=== PATIENT | female | born 1960 | race Caucasian/White ===

== ENCOUNTER 2021-07-05 09:03 | Outpatient (CLI) | payer MEDICAID, SELFPAY ==
--- NOTE | 2021-07-05 09:14 | MM_ITS ---
WS: [id number] BILATERAL DIGITAL SCREENING MAMMOGRAPHY WITH CAD CLINICAL INFORMATION: SCREENING HISTORY: Screening mammogram. No current complaints. COMPARISON: TECHNIQUE: Bilateral CC and MLO views. FINDINGS: Scattered fibroglandular densities bilaterally. Punctate and lucent centered calcifications. No suspi cious focal mass, asymmetry, calcifications, or architectural distortion. No evidence of malignancy. MM/[place] [id number] IMPRESSION: BI-RADS: 2-Benign FOLLOW UP: 1 Year Follow-up Recommend return to annual screening mammography.
== END 2021-07-05 09:04 | disposition home or self-care (01) ==
PROVIDERS: Visit Provider Nurse Practitioner Family
DX: Z12.31 Encounter for screening mammogram for malignant neoplasm of breast (principal)
CPT/HCPCS: 77067

== ENCOUNTER 2022-07-22 09:11 | Outpatient (CLI) | payer MEDICAID, SELFPAY ==
--- NOTE | 2022-07-22 09:23 | MM_ITS ---
WS: [id number] Bilateral screening 3D tomosynthesis digital mammogram, 07/22/2022 Clinical Data: SCREENING Comparison: 07/05/2021, 06/18/2018. Findings: The breast parenchymal pattern shows fibroglandular tissue. No spiculated masses or clustered calcifi cations are seen. There are no secondary signs of carcinoma. MM/[place] [id number] Impression: 1. Negative bilateral mammogram unchanged. 2. Recommend annual screening mammograms. BIRADS: 1-Negative FOLLOW UP: 1 Year Follow-up The CAD gas and oil checker was used.
== END 2022-07-22 09:12 | disposition home or self-care (01) ==
LOC: RAD 09:16
PROVIDERS: PCP Physician Assistant; Visit Provider Physician Assistant
DX: Z12.31 Encounter for screening mammogram for malignant neoplasm of breast (principal)
CPT/HCPCS: 77063; 77067

== ENCOUNTER 2023-04-19 21:35 | Inpatient (IN) | payer MEDICAID, SELFPAY ==
[2023-04-19 21:43] VITALS: BP 193/80; PULSE 154; RESP 16; TEMP 36.6; O2SAT 97; BMI 40.6
--- NOTE | 2023-04-19 21:47 | ECG_ITS ---
[facility] Test Date: 2023-04-19 Pat Name: Judith Emmanuel Department: Room: Gender: Female Pipe Organ Technician: : 1960 Requested By: Zackery Alcazar Order Number: [id number] Ashely MD: Nayely Ryan M.D. Measurements Intervals [place] Rate: 157 P: 0 [place]: 0 QRS: 73 QRSD: 144 T: 35 QT: 295 QTc: 478 Interpretive Statements ATRIAL FIBRILLATION WITH RAPID VENTRICULAR RESPONSE RIGHT BUNDLE BRANCH BLOCK [120+ ms QRS DURATION, UPRIGHT V1, 40+ ms S IN I/aVL/V4/V5/V6] CRITICAL TEST RESULT No previous ECG available for comparison Electronically Signed On 04-20-2023 19:39:28 SPARK PLUG ASSEMBLER by Nayely Ryan M.D. [email or web address].[employer]/store/NU/[id number] f
--- NOTE | 2023-04-19 22:00 | XRR_ITS ---
PROCEDURE INFORMATION: Exam: XR Chest Exam date and time: 04/19/2023 10:17 PM Age: 62 years old Clinical indication: Chest pressure; Patient HX: Chest pain; Tachycardia; Afib; HTN TECHNIQUE: Imaging protocol: Radiologic exam of the chest. Views: 1 view. COMPARISON: No relevant prior studies available. FINDINGS: Lungs: No consolidation or pulmonary edema. Pleural spaces: No pleural effusion. No pneumothorax. Heart/Mediastinum: Cardiomediastinal silhouette is normal in size. Bones/joints: No acute fractures. XR/XR chest 1V portable [id number] IMPRESSION: No acute findings.
[2023-04-19 22:13] LABS: Basophils % 0.4 %; Eosinophils # 0.2 10^3/uL (0.0-0.8); Eosinophils % 1.8 %; Hematocrit 45.9 % (36-47); Lymphocytes # 3.2 10^3/uL (0.8-4.8); Lymphocytes % 33.6 %; Mean Corpuscular HGB Conc 33.6 g/dL (30-55); Mean Corpuscular Hemoglobin 30.3 pg (27-33); Mean Corpuscular Volume 90.4 fl (85-98); Mean Platelet Volume 9.7 fL (7.4-10.4); Monocytes # 0.9 10^3/uL (0.2-0.9); Monocytes % 9.5 %; Neutrophils # 5.18 10^3/uL (1.8-7.7); Neutrophils % 54.5 %; Nucleated Red Blood Cells % 0 %; Platelet Count 254 10^3/cmm (157-399); Red Blood Count 5.08 10^6/uL (3.85-5.65); Red Cell Distribution Width 12.1 % (12.1-15.1); White Blood Count 9.51 10^3/uL (3.29-11.43)
[2023-04-19] MEDS: dilTIAZem 5 mg/mL SDV 5 mL 20 MG IVP (22:13)
[2023-04-19 22:20] VITALS: PULSE 154
[2023-04-19] MEDS: dilTIAZem 100 MG in sodium chloride 0.9% (add-van) 100 ML IV ×3 (22:20→22:42)
--- NOTE | 2023-04-19 22:28 | ED_ITS ---
HPI - Arrhythmia/Palpitations 2 General: Chief Complaint: Arrhythmia/Palpitations Stated Complaint: dizzy, high bp, cp Time Seen by Provider: 04/19/23 21:56 History of Present Illness: 62-year-old female no prior history of h eart disease. Her only medication is rosuvastatin. She presents with palpitations. She says she feels dizzy, has high blood pressure, and feels her heart beating rapidly and irregularly. She has had several episodes of feeling irregular with her heartbeat recently, but has not investigated this. She has no prior history of atrial fibrillation. No documented history of hypertension. She has not been ill otherwise recently. Associated symptoms: Deny nausea or vomiting Review of Systems 2 Const: Denies: fever(s), chills or body aches Eyes: Denies: change in vision Card: Reports: chest pain, palpitations and irregular heart rhythm; Denies: swelling of feet/ankles Resp: Denies: dyspnea, productive cough, non-productive cough or wheezing GI: Denies: abdominal pain, nausea, vomiting, diarrhea or hematochezia : Denies: difficulty voiding Skin/Breast: Denies: rash Neuro: Denies: headache(s), weakness in extremities, dizziness or confusion PFSH ED 2 PFSH: Medical History No pertinent past medical history Surgical History No pertinent past surgical history Physical Exam 2 Const: GENERAL APPEARANCE: cooperative; not frail appearing HENMT: COMMON NORMALS: normocephalic, atraumatic and Normal external nose present HEAD & SCALP: normocephalic and atraumatic FACE & SINUS: normal facial exam and face symmetric NOSE: Normal external nose present Eye: COMMON NORMALS: Equal, round and reactive pupils present and EOMs intact bilaterally PUPIL: Yes Equal, round and reactive pupils present Neck/C-Spine: GENERAL: Yes trachea midline Chest: CHEST: Yes Symmetrical chest wall rise Resp: COMMON NORMALS: normal respiratory effort, No retractions, No use of accessory muscles and clear to auscultation bilaterally AUSCULTATION: clear to auscultation bilaterally Cardio: RATE: tachycardic RHYTHM: abnormal rhythm irregularly irregular GI: COMMON NORMALS: Normal to inspection, nondistended, normoactive bowel sounds present Extremity: COMMON NORMALS: no pedal edema Neuro: ZANDER COMA SCALE: document GCS findings Dickens coma scale eye opening: Spontaneous Dickens coma scale verbal response: Orientated Dickens coma scale motor response: Obey commands Zander coma scale total score: 15 S ENSORY EXAM: Yes extremities (intact) Psych: COMMON NORMALS: speech normal SPEECH: Yes normal speech Skin: COMMON NORMALS: no rashes or lesions noted GENERAL SKIN EXAM: no rashes or lesions noted Course 2 Vital Signs: Vital signs: Vital Signs Temperature 98 F 04/19/23 21:43 Pulse Rate 129 H 04/19/23 23:04 Respiratory Rate 20 H 04/19/23 23:04 Blood Pressure 145/76 04/19/23 23:04 Pulse Oximetry 94 04/19/23 23:04 Oxygen Delivery Me thod Room Air 04/19/23 21:43 MDM - Arrhythmia/Palpitations Medical Decision Making No prior atrial fibrillation history. No history of longstanding hypertension or coronary disease. Fastest heart rate was near 200. Bolus of 20 mg of diltiazem given, followed by drip. Metoprolol was given at 2.5 mg IV, 2 different times. Maintaining a rate of 1 teens to 120s currently, but on 15 mg of Cardizem on drip. She feels improved. Blood pressure has improved as well. Currently 152/85. CBC is normal. Creatinine is 1. BMP is not remarkable. Chest x-ray is nonacute. BNP is only 37. Troponin is 12. TSH mildly elevated. Chest x-ray is negative. She will be admitted to the [facility]. Hospitalist will see the patient. Lab Data 04/19/23 21:58 04/19/23 21:58 Radiology Impressions Chest X-Ray 04/19/23 22:00 IMPRESSION: No acute findings. Laboratory Results WBC 9.51 10^3/uL (3.29-11.43) 04/19/23 21:58 RBC 5.08 10^6/uL (3.85-5.65) 04/19/23 21:58 Hgb 15.40 g/dL (11.27-16.99) 04/19/23 21:58 Hct 45.9 % (36-47) 04/19/23 21:58 MCV 90.4 fl (85-98) 04/19/23 21:58 MCH 30.3 pg (27-33) 04/19/23 21:58 MCHC 33.6 g/dL (30-55) 04/19/23 21:58 RDW 12.1 % (12.1-15.1) 04/19/23 21:58 Plt Count 254 10^3/cmm (157-399) 04/19/23 21:58 MPV 9.7 fL (7.4-10.4) 04/19/23 21:58 Neut % (Auto) 54.5 % 04/19/23 21:58 Lymph % (Auto) 33.6 % 04/19/23 21:58 [place] % (Auto) 9.5 % 04/19/23 21:58 Eos % (Auto) 1.8 % 04/19/23 21:58 Baso % (Auto) 0.4 % 04/19/23 21:58 Neut # (Auto) 5.18 10^3/uL (1.8-7.7) 04/19/23 21:58 Lymph # (Auto) 3.2 10^3/uL (0.8-4.8) 04/19/23 21:58 [place] # (Auto) 0.9 10^3/uL (0.2-0.9) 04/19/23 21:58 Eos # (Auto) 0.2 10^3/uL (0.0-0.8) 04/19/23 21:58 Baso # (Auto) 0.0 10^3/uL (0.0-0.1) 04/19/23 21:58 Nucleated RBC % (auto) 0 % 04/19/23 21:58 Nucleated RBCs # 0.0 /100WBC 04/19/23 21:58 PT 11.70 SECONDS (12.1-14.9) L 04/19/23 21:58 INR 0.84 (0.8-1.2) 04/19/23 21:58 APTT 30.8 SECONDS (23.9-36.7) 04/19/23 21:58 Sodium 139 mmol/L (136-145) 04/19/23 21:58 Potassium 3.9 mmol/L (3.5-5.1) 04/19/23 21:58 Chloride 99 mmol/L (98-107) 04/19/23 21:58 Carbon Dioxide 27 mmol/L (22-29) 04/19/23 21:58 Anion Gap 16.9 (5-19) 04/19/23 21:58 BUN 17 mg/dL (8-23) 04/19/23 21:58 Creatinine 1.0 mg/dL (0.5-0.9) H 04/19/23 21:58 GFR Calculation 56.6 mL/min (90-130) L 04/19/23 21:58 Glucose 158 mg/dL (65-115) H 04/19/23 21:58 Calculated Osmolality 293 mOsm/kg (285-295) 04/19/23 21:58 Calcium 9.6 mg/dL (8.5-10.5) 04/19/23 21:58 Magnesium 1.7 mg/dL (1.7-2.3) 04/19/23 21:58 Total Bilirubin 0.2 mg/dL (0.15-1.2) 04/19/23 21:58 AST 26 U/L (0-32) 04/19/23 21:58 ALT 29 U/L (0-33) 04/19/23 21:58 Alkaline Phosphatase 106 U/L (35-105) H 04/19/23 21:58 Creatine Kinase 92 U/L (26-192) 04/19/23 21:58 Troponin T Baseline 12 ng/L (0-10) H 04/19/23 21:58 NT-Pro-B Natriuret Pep 37 pg/mL (0-125) 04/19/23 21:58 Total Protein 7.9 g/dL (6.6-8.7) 04/19/23 21:58 Albumin 4.5 g/dL (3.5-5.2) 04/19/23 21:58 Globulin 3.4 g/dL (1.3-4.6) 04/19/23 21:58 TSH 5.73 uIU/mL (0.27-4.20) H 04/19/23 21:58 All radiology interpretation(s) finalized by discharge Critical Care Time 2 Critical Care Time: Critical Care Time: Yes Total Critical Care Time: 35 Attestation: This case had a high probability of a clinically significant, sudden, or life threatening deterioration of this patient's condition which required my full and direct attention, intervention and personal management. Time does not include any procedures performed. Discharge Plan Discharge Patient Disposition: Admitted As Inpatient Clinical Impression: Atrial fibrillation with rapid ventricular response Condition: Fair Prescriptions: No Action rosuvastatin [Crestor] 5 mg tablet 5 mg PO DAILY Referrals: Carol Alberts PA [Primary Care Provider] - Coding Level of Care Code ED Financial Agent for Brianna Gordon
[2023-04-19 22:35] LABS: INR 0.84 (0.8-1.2)
[2023-04-19 22:36] LABS: Partial Thromboplastin Time 30.8 SECONDS (23.9-36.7)
[2023-04-19] MEDS: metoprolol tartrate 1 mg/1 mL SDV 5 mL 2.5 MG IVP ×2 (22:40→22:58)
[2023-04-19 22:48] LABS: Troponin(5th) Baseline 12 ng/L (0-10)
[2023-04-19 22:58] LABS: Alanine Aminotransferase 29 U/L (0-33); Albumin Level 4.5 g/dL (3.5-5.2); Alkaline Phosphatase 106 U/L (35-105); Anion Gap 16.9 (5-19); Aspartate Amino Transferase 26 U/L (0-32); Blood Urea Nitrogen 17 mg/dL (8-23); Calcium 9.6 mg/dL (8.5-10.5); Carbon Dioxide 27 mmol/L (22-29); Chloride 99 mmol/L (98-107); Creatine Phosphokinase 92 U/L (26-192); Globulin 3.4 g/dL (1.3-4.6); Glomerular Filtration Rate 56.6 mL/min (90-130); Glucose 158 mg/dL (65-115); Magnesium 1.7 mg/dL (1.7-2.3); NT Pro B Type Natriuretic Pept 37 pg/mL (0-125); Osmolality Calculated 293 mOsm/kg (285-295); Potassium 3.9 mmol/L (3.5-5.1); Sodium 139 mmol/L (136-145); Thyroid Stimulating Hormone 5.73 uIU/mL (0.27-4.20); Total Bilirubin 0.2 mg/dL (0.15-1.2); Total Protein 7.9 g/dL (6.6-8.7)
[2023-04-19 23:04] VITALS: BP 145/76; PULSE 129; RESP 20; O2SAT 94
[2023-04-19] MEDS: sodium chloride 0.9% 1,000 ML 999 ML IV (23:40)
[2023-04-19 23:56] VITALS: BP 152/85; PULSE 128; RESP 20; O2SAT 96
--- NOTE | 2023-04-19 23:58 | P.HP_ITS ---
Providers/Chief Complaint 2 Primary Care Provider: Carol Alberts Chief Complaint: dizzy, high bp, cp History of Present Illness Judith Emmanuel is a 62 year old female with no significant past medical surgical history presented with chief complaint of palpitations. Patient stating that lately she has been snoring a lot, but she has not noticed that her energy has change in the day that she has to take a lot of naps, she does not carry any history of coronary disease or CHF or hypothyroidism, no recent fever, chest pain but has been noticing palpitations. Her palpitation would last for few minutes, today around 9 PM she was watching television when she started experiencing symptoms. She describing her symptoms as fluttery. In the ER she was diagnosed with new onset A-fib, she has maxed out on Cardizem 15 mg at this point I have requested TSH, mag level will give her 2 g of magnesium will request BNP and echo. She is not complaining of active chest pain or shortness of breath, heart rate fluctuating between 130s to 140s Review of Systems 2 Const: Denies: fever(s) Eyes: Denies: change in vision ENMT: Denies: throat pain Card: Denies: chest pain Resp: Denies: dyspnea GI: Denies: abdominal pain : Denies: flank pain Musc: Denies: neck pain Skin/Breast: Denies: rash Neuro: Denies: headache(s) Psych: Reports: anxiety Endo: Denies: polyuria Oliver/Lymph: Denies: easy bruising Medications/Allergies Home Medications Medication Instructions Recorded Confirmed Last Taken Type rosuvastatin 5 mg tablet (Crestor) 5 mg PO DAILY 08/12/22 08/12/22 Unknown History Allergies Allergy/AdvReac Type Severity Reaction Status Date / Time penicillamine Allergy Unknown Verified 04/19/23 21:47 PFSH Acute 2 PFSH: Medical History No pertinent past medical history Surgical History No pertinent past surgical history Family History Other CAD (coronary artery disease) Cardiomyopathy Social History Smoking and tobacco/nicotine status: never used tobacco/nicotine Alcohol intake: never Vitals/I&O/Wt Last Vital Signs Temp 98 F 04/19/23 21:43 Pulse 128 H 04/19/23 23:56 Resp 20 H 04/19/23 23:56 BP 152/85 04/19/23 23:56 Pulse Ox 96 04/19/23 23:56 O2 Del Method Room Air 04/19/23 21:43 04/19/23 04/19/23 04/20/23 14:59 22:59 06:59 Intake Total 3.166 / 3.166 Balance 3.166 / 3.166 Weight last 48 hrs Weight 102.512 kg Physical Exam 2 Narrative: Pleasant female Morbidly obese S1, S2 radial A-fib RVR Hemodynamically stable GCS 15 No chest pain No shortness of breath Pleasant cooperative Euvolemic No sign of heart failure Data 04/19/23 21:58 04/19/23 21:58 A&P Assessment and plan (1) Atrial fibrillation with rapid ventricular response: Plan New onset A-fib Currently patient is in RVR Maxed out on Cardizem Will give her amiodarone IV push of 150 mg and then start amiodarone drip Will give her magnesium Check TSH and mag level Check echo and BNP Patient does snore a lot Will check overnight pulse oximeter to see if she would require sleep study to rule out sleep apnea If she does not convert to normal rhythm by tomorrow morning she might need cardiology for cardioversion I will anticoagulate her with therapeutic Lovenox dose Her [id number] score is 2 for gender and hypertension Cardiac diet Self interpretation of EKG, A-fib RVR Attestations 2 Medical Necessity Statement*: Anticipating patient will stay more than 2 midnights for new onset A-fib RVR management, She has maxed out on Cardizem, will switch to amiodarone drip Diagnoses Atrial fibrillation with rapid ventricular response I48.91
[2023-04-20] VITALS (9 sets, daily range): BP systolic 106–156; BP diastolic 71–92; PULSE 60–128; RESP 16–26; TEMP 36.4–36.6; O2SAT 95–96; BMI 40.5
--- NOTE | 2023-04-20 | ECG_ITS ---
[facility] Test Date: 2023-04-19 Pat Name: Judith Emmanuel Department: Room: 106 Gender: Female Medical Affairs Manager: : 1960 Requested By: Zackery Alcazar Order Number: [id number] Ashely MD: Nayely Ryan M.D. Measurements Intervals [place] Rate: 126 P: 0 [place]: 0 QRS: 72 QRSD: 142 T: 35 QT: 324 QTc: 471 Interpretive Statements ATRIAL FIBRILLATION WITH RAPID VENTRICULAR RESPONSE RIGHT BUNDLE BRANCH BLOCK [120+ ms QRS DURATION, UPRIGHT V1, 40+ ms S IN I/aVL/V4/V5/V6] Compared to ECG 04/19/2023 21:41:30 No significant changes Electronically Signed On 04-20-2023 19:47:48 HEAD OF STORE OPERATIONS by Nayely Ryan M.D. [email or web address]/store/[id number]
[2023-04-20 00:22] LABS: D Dimer 0.41 ug/mLFEU (0-0.59)
[2023-04-20] MEDS: metoprolol tartrate 1 mg/1 mL SDV 5 mL 5 MG IVP (00:45)
[2023-04-20] MEDS: amiodarone 50 mg/mL SDV 3 mL 150 MG IVP (01:49)
[2023-04-20] MEDS: dilTIAZem 30 mg Tablet PO ×2 (01:49→06:14)
[2023-04-20] MEDS: enoxaparin 100 mg/mL Syringe SUBCUT ×2 (01:55→14:02)
[2023-04-20] MEDS: flu vacc pf 2023-24 (6 mos+) 60 MCG IM (01:57)
[2023-04-20 02:00] LABS: Basophils % 0.2 %; Eosinophils # 0.1 10^3/uL (0.0-0.8); Eosinophils % 0.6 %; Hematocrit 41.5 % (36-47); Lymphocytes # 1.5 10^3/uL (0.8-4.8); Lymphocytes % 18.3 %; Mean Corpuscular HGB Conc 33.3 g/dL (30-55); Mean Corpuscular Hemoglobin 29.9 pg (27-33); Mean Corpuscular Volume 89.8 fl (85-98); Mean Platelet Volume 9.4 fL (7.4-10.4); Monocytes # 0.5 10^3/uL (0.2-0.9); Monocytes % 5.9 %; Neutrophils # 6.17 10^3/uL (1.8-7.7); Neutrophils % 74.8 %; Nucleated Red Blood Cells % 0 %; Platelet Count 221 10^3/cmm (157-399); Red Blood Count 4.62 10^6/uL (3.85-5.65); Red Cell Distribution Width 12.1 % (12.1-15.1); White Blood Count 8.26 10^3/uL (3.29-11.43)
[2023-04-20] MEDS: sodium chloride 0.9% (100 ml) 100 ML 600 ML (02:01)
[2023-04-20] MEDS: magnesium sulfate premix 2 GM/50 ML PIGGYBACK IV (02:04)
[2023-04-20 02:17] LABS: Troponin 5 2HR 24.98 ng/L (0-10)
[2023-04-20 02:22] LABS: Anion Gap 13.4 (5-19); Blood Urea Nitrogen 14 mg/dL (8-23); Calcium 8.9 mg/dL (8.5-10.5); Carbon Dioxide 24 mmol/L (22-29); Chloride 111 mmol/L (98-107); Creatinine Clr Calc Pharmacy 74.3836; Glomerular Filtration Rate 63.9 mL/min (90-130); Glucose 140 mg/dL (65-115); Magnesium 1.8 mg/dL (1.7-2.3); Osmolality Calculated 301 mOsm/kg (285-295); Potassium 4.4 mmol/L (3.5-5.1); Sodium 144 mmol/L (136-145)
[2023-04-20 02:27] LABS: Troponin 5 2HR Delta 12.98 ABS# (0-10)
[2023-04-20 03:36] LABS: Add Urine Microscopic? NO; Charge for UA Resulting for Rev
--- NOTE | 2023-04-20 03:39 | ECG_ITS ---
[facility] Test Date: 2023-04-20 Pat Name: Judith Emmanuel Department: Room: 106 Gender: Female Compressor Battery Pellets: : 1960 Requested By: Zackery Alcazar Order Number: [id number] Ashely MD: Nayely Ryan M.D. Measurements Intervals [place] Rate: 110 P: 0 [place]: 0 QRS: 71 QRSD: 144 T: 44 QT: 370 QTc: 502 Interpretive Statements ATRIAL FIBRILLATION WITH RAPID VENTRICULAR RESPONSE RIGHT BUNDLE BRANCH BLOCK [120+ ms QRS DURATION, UPRIGHT V1, 40+ ms S IN I/aVL/V4/V5/V6] Compared to ECG 04/19/2023 23:54:32 No significant changes Electronically Signed On 04-20-2023 19:47:57 NUCLEAR MEDICINE MEDICAL DIRECTOR by Nayely Ryan M.D. [email or web address]/store/[id number]
[2023-04-20 03:43] LABS: Bilirubin Urine Neg (Negative); Blood Urine Neg (Negative); Glucose Urine UA Trace (Normal); Ketones Urine Negative (Negative); Leukocyte Esterase Urine Negative (Negative); Nitrate Urine Negative (Negative); Protein Urine Neg (Negative); Specific Gravity, Urine 1.005 (1.005-1.030); Urine Appearance Clear (CLEAR); Urine Color Yellow (Yellow); Urobilinogen Urine Norm (Negative); pH Urine 7 (5-7)
[2023-04-20 05:31] LABS: Troponin 5 6HR 25.82 ng/L (0-10)
[2023-04-20 05:40] LABS: Troponin 5 6HR Delta 13.82 ng/L (0-12)
[2023-04-20] MEDS: acetaminophen 500 mg Tablet PO ×2 (14:01→18:27)
[2023-04-20] MEDS: dilTIAZem 30 mg Tablet 60 MG PO ×3 (14:01→21:03)
[2023-04-20 14:11] LABS: Iron 46 ug/dL (37-145); Percent Saturation 17.1 % (20-50); Total Iron Binding Capacity 268 mcg/dl; Unsaturated Iron Binding 222 ug/dL (112-347)
[2023-04-20 14:27] LABS: Vitamin B12 447 pg/mL (232-1245)
--- NOTE | 2023-04-20 14:45 | PM.MISC ---
Miscellaneous Note Purpose of Documentation: Cross coverage Note: Admitted overnight. H&P and labs appreciated. Patient doing well family member at bedside. Complaining of feeling fluttering chest. Does not have a history of atrial fibrillation in past. Plan: Continue with IV amiodarone. Increase Cardizem to 60 mg 4 times daily. Patient remains tachycardic. If not improving within next 24 hours will most likely need to consult cardiology for cardioversion given new history of A-fib. Echocardiogram pending. Continue with full dose anticoagulation. Patient is agreeable for long-term anticoagulation. Restart home medications. Counseled in detail with patient about not to take home medications by herself.
[2023-04-20] MEDS: fluticasone nasal spray 16gm Btl 1 SPRAY NASAL (18:28)
[2023-04-20] MEDS: cetirizine 10 mg Tablet PO (21:03)
[2023-04-21] VITALS (11 sets, daily range): BP systolic 109–160; BP diastolic 70–93; PULSE 63–86; RESP 16–23; TEMP 36.6; O2SAT 92–98
[2023-04-21] MEDS: enoxaparin 100 mg/mL Syringe SUBCUT (00:24)
[2023-04-21 02:20] LABS: Estmated Average Glucose 120; Hemoglobin A1C 5.8 % (4.0-6.0)
[2023-04-21 02:33] LABS: Folate Level 10.3 ng/mL (4.8-37.3)
[2023-04-21 05:12] LABS: Basophils % 0.4 %; Eosinophils # 0.1 10^3/uL (0.0-0.8); Eosinophils % 1.8 %; Hematocrit 42.5 % (36-47); Lymphocytes % 27.6 %; Mean Corpuscular HGB Conc 32.7 g/dL (30-55); Mean Corpuscular Hemoglobin 29.7 pg (27-33); Mean Corpuscular Volume 90.8 fl (85-98); Mean Platelet Volume 9.6 fL (7.4-10.4); Monocytes # 0.6 10^3/uL (0.2-0.9); Monocytes % 7.7 %; Neutrophils # 4.45 10^3/uL (1.8-7.7); Neutrophils % 62.4 %; Nucleated Red Blood Cells % 0 %; Platelet Count 206 10^3/cmm (157-399); Red Blood Count 4.68 10^6/uL (3.85-5.65); Red Cell Distribution Width 12.6 % (12.1-15.1); White Blood Count 7.14 10^3/uL (3.29-11.43)
[2023-04-21 05:29] LABS: Alanine Aminotransferase 22 U/L (0-33); Albumin Level 3.9 g/dL (3.5-5.2); Alkaline Phosphatase 84 U/L (35-105); Anion Gap 10.7 (5-19); Aspartate Amino Transferase 18 U/L (0-32); Blood Urea Nitrogen 11 mg/dL (8-23); Calcium 9.3 mg/dL (8.5-10.5); Carbon Dioxide 26 mmol/L (22-29); Chloride 104 mmol/L (98-107); Cholesterol 213 mg/dL (0-200); Globulin 2.8 g/dL (1.3-4.6); Glomerular Filtration Rate 85.4 mL/min (90-130); Glucose 107 mg/dL (65-115); HDL Cholesterol 41 mg/dL (60-100); LDL Cholesterol Calculated 133 mg/dL (50-129); Osmolality Calculated 284 mOsm/kg (285-295); Phosphorus 2.8 mg/dL (2.5-4.5); Potassium 3.7 mmol/L (3.5-5.1); Sodium 137 mmol/L (136-145); Total Bilirubin 0.5 mg/dL (0.15-1.2); Total Protein 6.7 g/dL (6.6-8.7); Triglycerides 196 mg/dL (0-150); VLDL Cholestrol Calculation 39 mg/dL (0-30)
--- NOTE | 2023-04-21 06:00 | USCV_ITS ---
Judith Emmanuel Age: 62 Gender: F : 1960 Exam Date: 04/21/2023 08:56 Ordering Phys: Richard Salinas MD Technologist: [place] [facility] [place]: a fib BP: 160 / 93 HR: 72 Rhythm: Sinus Technical Quality: Suboptimal MEASUREMENTS (Male / Female) Normal Values 2D ECHO LV Diastolic Diameter PLAX 4.2 cm 4.2 - 5.9 / 3.9 - 5.3 cm LV Systolic Diameter PLAX 2.7 cm IVS Diastolic Thickness 1.2 cm 0.6 - 1.0 / 0.6 - 0.9 cm IVS Systolic Thickness 1.9 cm LVPW Diastolic Thickness 1.2 cm 0.6 - 1.0 / 0.6 - 0.9 cm LVPW Systolic Thickness 1.5 cm LVOT Diameter 2.0 cm LV Ejection Fraction 2D Teich 64.4 % LV Ejection Fraction MOD 2C 61.7 % LV Ejection Fraction 2C AL 61.8 % LA Diameter 4.1 cm M-MODE Aortic Annulus Diameter 3.8 cm LA Ao Ratio MM 1.2 MV E Point Septal Separation 0.8 cm DOPPLER LVOT Peak Velocity 93.0 cm/s MV Area PHT 4.2 cm squared Mitral E to A Ratio 0.8 MV E' Velocity 36.0 cm/s Mitral E to MV E' Ratio 8.7 Mitral E to LV E' Lateral Ratio 8.8 Mitral E to LV E' Septal Ratio 8.6 TR Peak Velocity 214.3 cm/s TR Peak Gradient 18.4 mmHg TV Peak E Velocity 73.0 cm/s Right Atrial Pressure 3.0 mmHg Pulmonary Artery Systolic Pressu 21.4 mmHg RV Acceleration Time 0.1 s FINDINGS Left Ventricle Normal left ventricular size, systolic function and wall thickness, with no regional wall motion abnormalities. Grade I/IV diastolic dysfunction (abnormal relaxation filling pattern), normal to mildly elevated filling pressures. Left ventricular ejection fraction is estimated at 60 %. Right Ventricle Normal right ventricular size and systolic function. Normal right ventricular systolic pressure. Right Atrium The right atrium is normal in size. Left Atrium The left atrium is normal in size. Mitral Valve Structurally normal mitral valve. Mild-moderate mitral valve regurgitation. Aortic Valve Structurally normal aortic valve without significant sclerosis or stenosis. There is no aortic regurgitation. Tricuspid Valve Structurally normal tricuspid valve. Trace tricuspid valve regurgitation. Pulmonic Valve Pulmonic valve not well visualized. Pericardium Normal pericardium without effusion. Aorta Normal ascending aorta dimension. IVC The inferior vena cava appears normal. CONCLUSIONS Normal left ventricular size, systolic function and wall thickness, with no regional wall motion abnormalities. Grade I/IV diastolic dysfunction (abnormal relaxation filling pattern), normal to mildly elevated filling pressures. Left ventricular ejection fraction is estimated at 60 %. Structurally normal mitral valve. Mild-moderate mitral valve regurgitation. There are no prior echocardiogram studies to compare. Dr. Abram Samayoa MD (Electronically Signed) Final Date: 21 April 2023 15:56 S
[2023-04-21] MEDS: fluticasone nasal spray 16gm Btl 1 SPRAY NASAL (08:16)
[2023-04-21] MEDS: dilTIAZem 30 mg Tablet 60 MG PO ×2 (08:16→12:00)
[2023-04-21] MEDS: acetaminophen 500 mg Tablet PO (11:12)
[2023-04-21] MEDS: apixaban 5 mg Tablet PO (11:57)
[2023-04-21] MEDS: amiodarone 200 mg Tablet 400 MG PO (15:05)
--- NOTE | 2023-04-21 16:51 | P.DS_ITS ---
Discharge Providers Date of Admission: 04/20/23 00:04 Date of Discharge: April 21, 2023 Attending Provider at Admission: Richard Salinas MD Attending Provider at Discharge: Conner Mei Primary Care Provider: Carol Alberts Diagnoses at Discharge Discharge Diagnosis (1) Atrial fibrillation with rapid ventricular response: Status: Acute Reason for Visit Reason for Visit: dizzy, high bp, cp Hospital Course Hospital Course Very pleasant 62-year-old lady without much past medical history was admitted for assessment management after presenting with lightheadedness, palpitations, feeling unwell, on presentation with finding of new onset atrial fibrillation with RVR. Was started on Cardizem drip without good response, despite max rate, was started on amiodarone. With stroke risk was started on anticoagulation. Electrolytes were unremarkable. TSH with mild elevation, but free T4 normal. Please follow-up for subclinical hypothyroidism. She has been having issues with snoring, sleep apnea, and overnight pulse oximetry showed she did have episodes of desaturation down to 80-89% for a combined about 55 minutes overnight. Sleep apnea worsening is suspected trigger for her atrial fibrillation and possibly hypertension. On troponin series noted to have mild troponin elevation from 12 baseline up to 25 at 2 and 6 hours. Suspected demand ischemia secondary to arrhythmia with tachycardia, however, as discussed with her cannot exclude underlying coronary disease and would benefit from additional assessment. Echocardiogram was obtained, ejection fraction was normal, grade 1 diastolic function, no regional wall motion abnormality. She had been free of chest pain. We discussed options with her, she is in agreement with follow-up with stress test referral. Please follow-up with her. Heart rate converted to sinus rhythm with amiodarone, so she is continued on amiodarone at this time, her, she is asked to follow-up with cardiology to assess if she can wean down and off of amiodarone or switch to alternative agent. Please monitor for any complications including eyes, thyroid, lungs, liver that may be associated with amiodarone. Follow-up and continue to optimize hypertension. Physical Exam Narrative: Today she is feeling much better. No palpitations, no chest pain or pressure. No trouble breathing. Const: COMMON NORMALS: patient oriented x3 and alert GENERAL APPEARANCE: cooperative ORIENTATION/CONSCIOUSNESS: Yes awake HENMT: COMMON NORMALS: oropharynx normal Neck/C-Spine: COMMON NORMALS: no JVD Resp: COMMON NORMALS: normal respiratory effort and clear to auscultation bilaterally AUSCULTATION: clear to auscultation bilaterally Cardio: COMMON NORMALS: no JVD, regular rhythm, S1 normal heart sound present, S2 normal heart sound present and No murmurs present (Cardio) RHYTHM: regular rhythm HEART SOUNDS: S1 normal heart sound present and S2 normal heart sound present GI: COMMON NORMALS: Normal to inspection, nondistended, normoactive bowel sounds present, Soft to palpation and non-tender PALPATION: Yes Soft to palpation Extremity: COMMON NORMALS: no joint enlargement and no pedal edema Neuro: COMMON NORMALS: patient oriented x3 and moves all extremities SENSORIUM/ORIENTATION: Yes alert Skin: COMMON NORMALS: no rashes or lesions noted GENERAL SKIN EXAM: no rashes or lesions noted Discharge Data Studies Completed and Pending Completed Studies During Hospitalization Category Date Time Status XR chest 1V portable [id number] Stat Exams 04/19/23 22:00 Completed CV. echo complete* [id number] Routine Ultrasound 04/21/23 06:00 Completed Pending at discharge Category Date Time Status MAG [Magnesium] AM LABS Lab 04/22/23 04:00 Ordered MAG [Magnesium] AM LABS Lab 04/23/23 04:00 Ordered PHOS [Phosphorus] AM LABS Lab 04/22/23 04:00 Ordered PHOS [Phosphorus] AM LABS Lab 04/23/23 04:00 Ordered Radiology Impressions Chest X-Ray 04/19/23 22:00 IMPRESSION: No acute findings. Laboratory Results WBC 7.14 10^3/uL (3.29-11.43) 04/21/23 04:40 RBC 4.68 10^6/uL (3.85-5.65) 04/21/23 04:40 Hgb 13.90 g/dL (11.27-16.99) 04/21/23 04:40 Hct 42.5 % (36-47) 04/21/23 04:40 MCV 90.8 fl (85-98) 04/21/23 04:40 MCH 29.7 pg (27-33) 04/21/23 04:40 MCHC 32.7 g/dL (30-55) 04/21/23 04:40 RDW 12.6 % (12.1-15.1) 04/21/23 04:40 Plt Count 206 10^3/cmm (157-399) 04/21/23 04:40 MPV 9.6 fL (7.4-10.4) 04/21/23 04:40 Neut % (Auto) 62.4 % 04/21/23 04:40 Lymph % (Auto) 27.6 % 04/21/23 04:40 Braxton % (Auto) 7.7 % 04/21/23 04:40 Eos % (Auto) 1.8 % 04/21/23 04:40 Baso % (Auto) 0.4 % 04/21/23 04:40 Neut # (Auto) 4.45 10^3/uL (1.8-7.7) 04/21/23 04:40 Lymph # (Auto) 2.0 10^3/uL (0.8-4.8) 04/21/23 04:40 Braxton # (Auto) 0.6 10^3/uL (0.2-0.9) 04/21/23 04:40 Eos # (Auto) 0.1 10^3/uL (0.0-0.8) 04/21/23 04:40 Baso # (Auto) 0.0 10^3/uL (0.0-0.1) 04/21/23 04:40 Nucleated RBC % (auto) 0 % 04/21/23 04:40 Nucleated RBCs # 0.0 /100WBC 04/21/23 04:40 PT 11.70 SECONDS (12.1-14.9) L 04/19/23 21:58 INR 0.84 (0.8-1.2) 04/19/23 21:58 APTT 30.8 SECONDS (23.9-36.7) 04/19/23 21:58 D-Dimer 0.41 ug/mLFEU (0-0.59) 04/19/23 23:53 Sodium 137 mmol/L (136-145) 04/21/23 04:40 Potassium 3.7 mmol/L (3.5-5.1) 04/21/23 04:40 Chloride 104 mmol/L (98-107) 04/21/23 04:40 Carbon Dioxide 26 mmol/L (22-29) 04/21/23 04:40 Anion Gap 10.7 (5-19) 04/21/23 04:40 BUN 11 mg/dL (8-23) 04/21/23 04:40 Creatinine 0.7 mg/dL (0.5-0.9) 04/21/23 04:40 GFR Calculation 85.4 mL/min (90-130) L 04/21/23 04:40 Glucose 107 mg/dL (65-115) 04/21/23 04:40 Estimat Average Glucose 120 04/20/23 12:59 Hemoglobin A1c 5.8 % (4.0-6.0) 04/20/23 12:59 Calculated Osmolality 284 mOsm/kg (285-295) L 04/21/23 04:40 Calcium 9.3 mg/dL (8.5-10.5) 04/21/23 04:40 Phosphorus 2.8 mg/dL (2.5-4.5) 04/21/23 04:40 Magnesium 2.0 mg/dL (1.7-2.3) 04/21/23 04:40 Iron 46 ug/dL (37-145) 04/20/23 01:00 TIBC 268 mcg/dl 04/20/23 01:00 % Saturation 17.1 % (20-50) L 04/20/23 01:00 Unsat Iron Binding 222 ug/dL (112-347) 04/20/23 01:00 Total Bilirubin 0.5 mg/dL (0.15-1.2) 04/21/23 04:40 AST 18 U/L (0-32) 04/21/23 04:40 ALT 22 U/L (0-33) 04/21/23 04:40 Alkaline Phosphatase 84 U/L (35-105) 04/21/23 04:40 Creatine Kinase 92 U/L (26-192) 04/19/23 21:58 Troponin T Baseline 12 ng/L (0-10) H 04/19/23 21:58 Troponin T 120 Minute 24.98 ng/L (0-10) H 04/20/23 01:00 Delta Troponin T 12.98 ABS# (0-10) H* 04/20/23 01:00 Troponin T Hi Sens 6Hr 25.82 ng/L (0-10) H 04/20/23 04:15 Troponin T Hi Sens 6Hr Delta 13.82 ng/L (0-12) H* 04/20/23 04:15 NT-Pro-B Natriuret Pep 37 pg/mL (0-125) 04/19/23 21:58 Total Protein 6.7 g/dL (6.6-8.7) 04/21/23 04:40 Albumin 3.9 g/dL (3.5-5.2) 04/21/23 04:40 Globulin 2.8 g/dL (1.3-4.6) 04/21/23 04:40 Triglycerides 196 mg/dL (0-150) H 04/21/23 04:40 Cholesterol 213 mg/dL (0-200) H 04/21/23 04:40 LDL Cholesterol, Calc 133 mg/dL (50-129) H 04/21/23 04:40 Total VLDL Cholesterol 39 mg/dL (0-30) H 04/21/23 04:40 HDL Cholesterol 41 mg/dL (60-100) L 04/21/23 04:40 Cholesterol/HDL Ratio 5.20 mg/dL (0.0-4.40) H 04/21/23 04:40 Vitamin B12 447 pg/mL (232-1245) 04/20/23 01:00 Folate 10.3 ng/mL (4.8-37.3) 04/20/23 12:59 TSH 5.73 uIU/mL (0.27-4.20) H 04/19/23 21:58 Free T4 1.20 ng/dL (0.82-1.77) 04/20/23 01:00 Urine Color Yellow (Yellow) 04/20/23 00:19 Urine Appearance Clear (CLEAR) 04/20/23 00:19 Urine pH 7 (5-7) 04/20/23 00:19 Ur Specific [place] 1.005 (1.005-1.030) 04/20/23 00:19 Urine Protein Neg (Negative) 04/20/23 00:19 Urine Glucose (UA) Trace (Normal) H 04/20/23 00:19 Urine Ketones Negative (Negative) 04/20/23 00:19 Urine Blood Neg (Negative) 04/20/23 00:19 Urine Nitrate Negative (Negative) 04/20/23 00:19 Urine Bilirubin Neg (Negative) 04/20/23 00:19 Urine Urobilinogen Norm mg/dL (Negative) 04/20/23 00:19 Ur Leukocyte Esterase Negative (Negative) 04/20/23 00:19 Vitals Last Vital Signs Temp 97.8 F 04/21/23 08:00 Pulse 73 04/21/23 12:00 Resp 22 H 04/21/23 12:00 BP 144/78 04/21/23 12:00 Pulse Ox 94 04/21/23 12:00 O2 Del Method Room Air 04/21/23 12:00 Discharge Plan Discharge Patient Disposition: Home Condition: Stable Prescriptions: New Eliquis 5 mg Tablet 5 mg PO BID@0900,2100 Qty: 180 0RF amiodarone [Pacerone] 200 mg Tablet 400 mg PO BID Qty: 180 0RF Rx Instructions: Take 400mg twice daily for 1 week then reduce to 200mg twice daily. diltiazem HCl 60 mg capsule,extended release 12 hr 60 mg PO BID Qty: 180 0RF Continued rosuvastatin [Crestor] 5 mg tablet 5 mg PO DAILY Discharge Orders: Discharge Order (Routine); Ordered 04/21/23 Ordered By: Conner Mei Other Ambulatory Orders: Sestamibi Stress Test Request (Routine) Timeframe: 3 Days Facility: [facility] - Location: Cardiac Diagnostic Laboratory Ordered By: Conner Mei Sleep Study/Titration (Routine) Timeframe: 1 Week Facility: [facility] - Location: [facility] Ordered By: Conner Mei Referrals: CARDIOLOGY [Provider Group] - 05/20/23 1:30 pm (This appointment is scheduled with Farnaz Gordillo. ) Carol Alberts PA [Primary Care Provider] - 4-7 days (We have notified your physician's clinic of the need for a follow-up appointment to be scheduled. If you have not heard from them within the next 2 business days, please call them directly. ) Discharge Diet: Cardiac Patient Instructions: Diltiazem (By mouth), Amiodarone (By mouth), Apixaban (By mouth), A-fib (Atrial Fibrillation) (GEN), Sleep Apnea (GEN) Activity Restrictions/Additional Instructions: Follow-up with your primary doctor as well as with cardiology for additional assessment of new onset atrial fibrillation which was symptomatic. Your rhythm converted to normal sinus and symptoms have resolved. You are continued due to this reason on amiodarone. You were also started on diltiazem during hospitalization and this is continued to help with elevated blood pressure in addition to rate control of atrial fibrillation in case of recurrence. Please discuss with cardiology to see if you may be weaned down and off of amiodarone due to risk of complications with this medication. Please follow-up with your primary doctor to monitor for any complications related to your eyes, thyroid, lungs, liver. Follow-up with your primary doctor for reassessment of thyroid function with possible subclinical hypothyroidism. Your TSH was mildly elevated although free T4 was normal. Follow-up for sleep study for suspected obstructive sleep apnea. Your oxygen was reduced at night down to 80-89%. Untreated sleep apnea may contribute to atrial fibrillation episodes, as well as hypertension and other complications. Return to the hospital in case of any worsening or new concerning symptoms Discharge Attestations Time Spent in Discharge Care*: greater than 30 min Quality Metrics Clinical Quality Measures [ No reported AMI, CVA or VTE this stay] Coding Level of Care Code Acute Code for Chg Fwd Diagnoses Atrial fibrillation with rapid ventricular response I48.91
== END 2023-04-21 18:04 | disposition home or self-care (01) | DRG 309 ==
LOC: ER 23:49 → CSU 04-20 00:47
PROVIDERS: Student in an Organized Health Care Education/Training Program; Admitting Provider Internal Medicine; Emergency Provider Emergency Medicine; PCP Physician Assistant; Visit Provider Internal Medicine
DX: I48.91 Unspecified atrial fibrillation (principal); I24.89 Other forms of acute ischemic heart disease; Z79.01 Long term (current) use of anticoagulants; E03.8 Other specified hypothyroidism; G47.30 Sleep apnea, unspecified; I10 Essential (primary) hypertension
CPT/HCPCS: 36415; 71045; 80048; 80053; 80061; 81003; 82550; 82607; 82746; 83036; 83540; 83550; 83735; 83880; 84100; 84439; 84443; 84484; 85025; 85378; 85610; 85730; 90471; 90686; 93005; 93306; 94762; 96365; 96372; 96375; 96376; 99285; A4222; J0282; J0283; J1650; J3475; J3490; J7030

== ENCOUNTER 2023-04-23 22:05 | Emergency (ER) | payer MEDICAID, SELFPAY ==
[2023-04-23] VITALS (17 sets, daily range): BP systolic 151–207; BP diastolic 64–107; PULSE 88–100; RESP 16–26; TEMP 37.1; O2SAT 93–99; BMI 41.3
--- NOTE | 2023-04-23 22:11 | XRR_ITS ---
PROCEDURE INFORMATION: Exam: XR Chest Exam date and time: 04/23/2023 10:17 PM Age: 62 years old Clinical indication: Other: Hypertension; Additional info: HTN TECHNIQUE: Imaging protocol: Radiologic exam of the chest. Views: 1 view. COMPARISON: CR (CHEST, ) 04/19/2023 10:17 PM FINDINGS: Lungs: Unremarkable. No consolidation. Pleural spaces: Unremarkable. No pleural effusion. No pneumothorax. Heart/Mediastinum: Unremarkable. No cardiomegaly. Bones/joints: Unremarkable. XR/XR chest 1V portable [id number] IMPRESSION: No acute findings.
--- NOTE | 2023-04-23 22:12 | ED_ITS ---
HPI - General Adult 2 General: Chief complaint: Nausea/Vomiting/Diarrhea Stated complaint: high bp nausea Time Seen by Provider: 04/23/23 22:11 History of Present Illness: 62-year-old female comes in today with n ausea, and high blood pressure. Patient reports that she noticed she was nauseated this evening and checked her blood pressure saying that it was elevated in the 190s. Patient appears nontoxic. Patient appears in no pain. Patient reports no chest pain or shortness of breath. Patient was recently discharged 2 days ago for atrial fibs from the hospital. 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 Patient reports that prior to her hospitalization usually her blood pressure run in the 160s. Associated symptoms: Reports nausea; Deny chest pain, dyspnea or headache(s) Review of Systems 2 Const: Denies: fever(s) Card: Denies: chest pain Resp: Denies: dyspnea GI: Reports: nausea Neuro: Denies: headache(s) PFSH ED 2 PFSH: Medical History No pertinent past medical history Surgical History No pertinent past surgical history Family History Other CAD (coronary artery disease) Cardiomyopathy Social History Smoking and tobacco/nicotine status: never used tobacco/nicotine Alcohol intake: never Physical Exam 2 Const: COMMON NORMALS: alert HENMT: COMMON NORMALS: normocephalic HEAD & SCALP: normocephalic Neck/C-Spine: COMMON NORMALS: full ROM Resp: COMMON NORMALS: normal respiratory effort and clear to auscultation bilaterally AUSCULTATION: clear to auscultation bilaterally Cardio: COMMON NORMALS: regular rate and regular rhythm RATE: regular rate RHYTHM: regular rhythm GI: COMMON NORMALS: non-tender Back/Pelvis: COMMON NORMALS: thoracic and lumbar spine normal to inspection Extremity: COMMON NORMALS: no pedal edema Neuro: SENSORIUM/ORIENTATION: Yes alert Skin: COMMON NORMALS: turgor normal GENERAL SKIN EXAM: turgor normal Course 2 Vital Signs: Vital signs: Vital Signs Temperature 98.8 F 04/23/23 22:07 Pulse Rate 95 04/24/23 00:40 Respiratory Rate 25 H 04/24/23 00:40 Blood Pressure 170/67 04/24/23 00:40 Pulse Oximetry 94 04/24/23 00:40 Oxygen Delivery Me thod Room Air 04/23/23 22:07 MDM - General Adult Medical Decision Making Patient comes in tonight for complaints of nausea and elevated blood pressure. Patient appears nontoxic. Patient was recently started on medications for atrial fibs. On exam no edema is noted in the extremities. Lungs are clear to auscultation. Vital signs are normal. Differential diagnosis includes not limited to ACS, uncontrolled hypertension, adverse drug effect. CBC was unremarkable. CMP did note a bump in the patient's liver enzymes which I believe is probably related to the new medication she started. Although, patient does have her gallbladder may be having some early gallbladder dysfunction. Patient's main complaint is nausea. Patient was treated with 20 mg of hydralazine which lasted about 2 hours and then started to wear off she was then given 50 mg of losartan which improved her pressure to 169 systolic and she was discharged home with a prescription of 50 mg of losartan daily to take of her routine plan. First troponin was 13 and second troponin was 12 showing no elevation in trend. Chest x-ray was normal. Remainder of labs were unremarkable. Recommend follow-up with primary care on Friday for recheck of blood pressure and to discuss other options and possible medication changes. Lab Data 04/23/23 22:15 04/23/23 22:15 Radiology Impressions Chest X-Ray 04/23/23 22:11 IMPRESSION: No acute findings. Laboratory Results WBC 10.45 10^3/uL (3.29-11.43) 04/23/23 22:15 RBC 5.48 10^6/uL (3.85-5.65) 04/23/23 22:15 Hgb 16.40 g/dL (11.27-16.99) 04/23/23 22:15 Hct 47.8 % (36-47) H 04/23/23 22:15 MCV 87.2 fl (85-98) 04/23/23 22:15 MCH 29.9 pg (27-33) 04/23/23 22:15 MCHC 34.3 g/dL (30-55) 04/23/23 22:15 RDW 12.2 % (12.1-15.1) 04/23/23 22:15 Plt Count 278 10^3/cmm (157-399) 04/23/23 22:15 MPV 9.2 fL (7.4-10.4) 04/23/23 22:15 Neut % (Auto) 60.6 % 04/23/23 22:15 Lymph % (Auto) 31.3 % 04/23/23 22:15 Josephine % (Auto) 6.6 % 04/23/23 22:15 Eos % (Auto) 1.0 % 04/23/23 22:15 Baso % (Auto) 0.3 % 04/23/23 22:15 Neut # (Auto) 6.34 10^3/uL (1.8-7.7) 04/23/23 22:15 Lymph # (Auto) 3.3 10^3/uL (0.8-4.8) 04/23/23 22:15 Josephine # (Auto) 0.7 10^3/uL (0.2-0.9) 04/23/23 22:15 Eos # (Auto) 0.1 10^3/uL (0.0-0.8) 04/23/23 22:15 Baso # (Auto) 0.0 10^3/uL (0.0-0.1) 04/23/23 22:15 Nucleated RBC % (auto) 0 % 04/23/23 22:15 Nucleated RBCs # 0.0 /100WBC 04/23/23 22:15 Sodium 141 mmol/L (136-145) 04/23/23 22:15 Potassium 3.8 mmol/L (3.5-5.1) 04/23/23 22:15 Chloride 100 mmol/L (98-107) 04/23/23 22:15 Carbon Dioxide 27 mmol/L (22-29) 04/23/23 22:15 Anion Gap 17.8 (5-19) 04/23/23 22:15 BUN 17 mg/dL (8-23) 04/23/23 22:15 Creatinine 0.8 mg/dL (0.5-0.9) 04/23/23 22:15 GFR Calculation 73.2 mL/min (90-130) L 04/23/23 22:15 Glucose 109 mg/dL (65-115) 04/23/23 22:15 Calculated Osmolality 294 mOsm/kg (285-295) 04/23/23 22:15 Calcium 10.7 mg/dL (8.5-10.5) H 04/23/23 22:15 Total Bilirubin 0.5 mg/dL (0.15-1.2) 04/23/23 22:15 AST 177 U/L (0-32) H 04/23/23 22:15 ALT 220 U/L (0-33) H 04/23/23 22:15 Alkaline Phosphatase 126 U/L (35-105) H 04/23/23 22:15 Troponin T Baseline 13 ng/L (0-10) H 04/23/23 22:15 Troponin T 120 Minute 12.67 ng/L (0-10) H 04/24/23 00:08 Delta Troponin T -0.33 ABS# (0-10) L 04/24/23 00:08 NT-Pro-B Natriuret Pep 58 pg/mL (0-125) 04/23/23 22:15 Total Protein 9.0 g/dL (6.6-8.7) H 04/23/23 22:15 Albumin 5.5 g/dL (3.5-5.2) H 04/23/23 22:15 Globulin 3.5 g/dL (1.3-4.6) 04/23/23 22:15 Urine Color Colorless (Yellow) 04/23/23 23:05 Urine Appearance Clear (CLEAR) 04/23/23 23:05 Urine pH 6 (5-7) 04/23/23 23:05 Ur Specific [place] 1.015 (1.005-1.030) 04/23/23 23:05 Urine Protein Neg (Negative) 04/23/23 23:05 Urine Glucose (UA) Norm (Normal) 04/23/23 23:05 Urine Ketones Negative (Negative) 04/23/23 23:05 Urine Blood Neg (Negative) 04/23/23 23:05 Urine Nitrate Negative (Negative) 04/23/23 23:05 Urine Bilirubin Neg (Negative) 04/23/23 23:05 Urine Urobilinogen Neg mg/dL (Negative) 04/23/23 23:05 Ur Leukocyte Esterase Trace (Negative) H 04/23/23 23:05 Urine RBC None /hpf (0-2) 04/23/23 23:05 Urine WBC None /hpf (0-5) 04/23/23 23:05 Ur Squamous Epith Cells None /hpf (0-5) 04/23/23 23:05 Amorphous Sediment Not Reportable 04/23/23 23:05 Urine Bacteria Trace /hpf (NONE) 04/23/23 23:05 Urine Mucus 1+ /hpf 04/23/23 23:05 All radiology interpretation(s) finalized by discharge EKG Data EKG 1: EKG interpretation date: 04/23/23 EKG interpretation time: 22:45 Prior EKG tracings: not available for review Interpretation: EKG shows a sinus rhythm with a regular rate at 86 bpm. No prior exam was available for comparison. No ST elevation or ectopy was noted. Computer generated interpretation: Chest X-Ray 04/23/23 22:11 IMPRESSION: No acute findings. Sinus rhythm, right bundle branch block, abnormal EKG, unconfirmed report. Discharge Plan Discharge Patient Disposition: Home Clinical Impression: Nausea Hypertension Qualifiers: Hypertension type: unspecified Qualified Code(s): I10 - Essential (primary) hypertension Adverse drug effect Qualifiers: Encounter type: initial encounter Qualified Code(s): T50.905A - Adverse effect of unspecified drugs, medicaments and biological substances, initial encounter Condition: Stable Prescriptions: New losartan 50 mg tablet 50 mg PO DAILY Qty: 30 0RF No Action rosuvastatin [Crestor] 5 mg tablet 5 mg PO DAILY Pacerone 200 mg Tablet 400 mg PO BID Qty: 180 0RF Rx Instructions: Take 400mg twice daily for 1 week then reduce to 200mg twice daily. Eliquis 5 mg Tablet 5 mg PO BID@0900,2100 Qty: 180 0RF diltiazem HCl 60 mg capsule,extended release 12 hr 60 mg PO BID Qty: 180 0RF Discharge Orders: Discharge ED (Routine); Ordered 04/24/23 Ordered By: Jasvir Leach Referrals: Carol Alberts PA [Primary Care Provider] - Discharge Diet: Advance as tolerated Discharge Activity: Increase activity as tolerated Patient Instructions: Hypertension (ED) Activity Restrictions/Additional Instructions: Discussed with your pharmacist ways that you may take your medication in order to avoid nausea. Sometimes taking your medication with food can assist with these symptoms. Follow-up with primary care on Friday for recheck of blood pressure. Take losartan 50 mg daily along with your routine medicines to help with better control of your blood pressure. Return to ER for severe chest pain, blood in vomit or stool, or fever greater than 100.4. Coding Level of Care Code ED [place] for Brianna Gordon
[2023-04-23 22:25] LABS: Basophils % 0.3 %; Eosinophils # 0.1 10^3/uL (0.0-0.8); Hematocrit 47.8 % (36-47); Lymphocytes # 3.3 10^3/uL (0.8-4.8); Lymphocytes % 31.3 %; Mean Corpuscular HGB Conc 34.3 g/dL (30-55); Mean Corpuscular Hemoglobin 29.9 pg (27-33); Mean Corpuscular Volume 87.2 fl (85-98); Mean Platelet Volume 9.2 fL (7.4-10.4); Monocytes # 0.7 10^3/uL (0.2-0.9); Monocytes % 6.6 %; Neutrophils # 6.34 10^3/uL (1.8-7.7); Neutrophils % 60.6 %; Nucleated Red Blood Cells % 0 %; Platelet Count 278 10^3/cmm (157-399); Red Blood Count 5.48 10^6/uL (3.85-5.65); Red Cell Distribution Width 12.2 % (12.1-15.1); White Blood Count 10.45 10^3/uL (3.29-11.43)
[2023-04-23] MEDS: hyDRALAzine 20 mg/mL INJ 1 mL 10 MG IVP ×2 (22:27→22:51)
--- NOTE | 2023-04-23 22:37 | ECG_ITS ---
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 Measurements Intervals [place] Rate: 86 P: 38 SD: 171 QRS: 13 QRSD: 153 T: 25 QT: 401 QTc: 481 Interpretive Statements SINUS RHYTHM RIGHT BUNDLE BRANCH BLOCK [120+ ms QRS DURATION, UPRIGHT V1, 40+ ms S IN I/aVL/V4/V5/V6] Compared to ECG 04/20/2023 03:39:00 Atrial fibrillation no longer present Electronically Signed On 04-25-2023 19:12:42 ACCOUNT MAINTENANCE REPRESENTATIVE by Nayely Ryan M.D. [email or web address]
--- NOTE | 2023-04-23 22:43 | PC.NURSE ---
Patient declined taking ordered Zofran at this time, stated that she isn't that nauseous to take something. Haylee informed of patient's decision, no new orders received. Med returned to [facility].
[2023-04-23 22:47] LABS: Albumin Level 5.5 g/dL (3.5-5.2); Alkaline Phosphatase 126 U/L (35-105); Chloride 100 mmol/L (98-107); Potassium 3.8 mmol/L (3.5-5.1); Sodium 141 mmol/L (136-145)
[2023-04-23 22:48] LABS: Troponin(5th) Baseline 13 ng/L (0-10)
[2023-04-23 23:13] LABS: Anion Gap 17.8 (5-19); Aspartate Amino Transferase 177 U/L (0-32); Blood Urea Nitrogen 17 mg/dL (8-23); Calcium 10.7 mg/dL (8.5-10.5); Carbon Dioxide 27 mmol/L (22-29); Globulin 3.5 g/dL (1.3-4.6); Glomerular Filtration Rate 73.2 mL/min (90-130); Glucose 109 mg/dL (65-115); Osmolality Calculated 294 mOsm/kg (285-295); Total Bilirubin 0.5 mg/dL (0.15-1.2)
[2023-04-23 23:22] LABS: NT Pro B Type Natriuretic Pept 58 pg/mL (0-125)
[2023-04-23 23:22] LABS: Add Urine Microscopic? YES; Bilirubin Urine Neg (Negative); Blood Urine Neg (Negative); Glucose Urine UA Norm (Normal); Ketones Urine Negative (Negative); Leukocyte Esterase Urine Trace (Negative); Nitrate Urine Negative (Negative); Protein Urine Neg (Negative); Specific Gravity, Urine 1.015 (1.005-1.030); Urine Appearance Clear (CLEAR); Urine Color Colorless (Yellow); Urobilinogen Urine Neg (Negative); pH Urine 6 (5-7)
[2023-04-23 23:23] LABS: Add Urine Culture? No; Bacteria Urine TRACE /hpf; Mucus Urine 1+ /hpf
[2023-04-23] MEDS: ondansetron 2 mg/ML SDV 2 mL 4 MG IVP (23:29)
[2023-04-24] VITALS (11 sets, daily range): BP systolic 166–194; BP diastolic 67–85; PULSE 94–101; RESP 14–27; O2SAT 94–96
[2023-04-24] LABS: Alanine Aminotransferase 220 U/L (0-33)
[2023-04-24] MEDS: losartan 50 mg Tablet PO (00:17)
[2023-04-24 00:40] LABS: Troponin 5 2HR 12.67 ng/L (0-10)
[2023-04-24 00:45] LABS: Troponin 5 2HR Delta -0.33 ABS# (0-10)
== END 2023-04-24 01:06 | disposition home or self-care (01) ==
PROVIDERS: Emergency Provider Nurse Practitioner Family; PCP Physician Assistant
DX: I10 Essential (primary) hypertension (principal); R11.0 Nausea; T50.905A Adverse effect of unspecified drugs, medicaments and biological substances, initial encounter; Z79.01 Long term (current) use of anticoagulants
CPT/HCPCS: 36415; 71045; 80053; 81001; 83880; 84484; 85025; 93005; 96374; 96375; 96376; 99285; J0360; J2405

== ENCOUNTER 2023-05-05 10:16 | Emergency (ER) | payer MEDICAID, SELFPAY ==
[2023-05-05 10:21] VITALS: BP 188/66; PULSE 76; RESP 18; TEMP 36.4; O2SAT 99; BMI 37.2
--- NOTE | 2023-05-05 10:48 | ED_ITS ---
HPI - Allergic Reaction General: Chief complaint: Allergic Reaction Stated complaint: allergic reaction Time Seen by Provider: 05/05/23 10:21 Source: patient Mode of arrival: ambulatory History of Present Illness: HPI narrative: 62-year-old female presents emergency ro om complaining of discomfort in her throat she relates that after she takes to the amiodarone and diltiazem she thinks it may be more likely the amiodarone. She does not get any hives or rash. She just has a sensation of swelling in her throat will last for a few hours after taking the medications. She is not having any symptoms now. She was recently hospitalized for atrial fibrillation was discharged home amiodarone 400 mg twice a day for a week and then was to decrease to 200 twice a day. She transition to the 200 twice a day early because of potential side effects. She has also been taking diltiazem 60 twice a day. She has not had any further episodes of atrial fibrillation or racing heart. She did convert while on the hospital as an inpatient and is currently on Eliquis. No other new medications. Onset (ago): day(s) Associated symptoms: Deny abdominal pain Treatment prior to arrival: none Previous Allergic Reaction History: none Review of Systems Const: Denies: fever(s) or chills Card: Denies: chest pain Resp: Denies: dyspnea GI: Denies: abdominal pain : Denies: dysuria, urinary frequency or urinary urgency Musc: Denies: neck pain or back pain Skin/Breast: Denies: rash PFSH ED PFSH: Medical History No pertinent past medical history Surgical History No pertinent past surgical history Family History Other CAD (coronary artery disease) Cardiomyopathy Social History Smoking and tobacco/nicotine status: never used tobacco/nicotine Alcohol intake: never Physical Exam Const: COMMON NORMALS: no acute distress GENERAL APPEARANCE: cooperative and comfortable ORIENTATION/CONSCIOUSNESS: Yes awake, Yes oriented to person, Yes oriented to place and Yes oriented to time HENMT: COMMON NORMALS: normocephalic, atraumatic and hearing grossly normal bilaterally HEAD & SCALP: normocephalic and atraumatic Resp: COMMON NORMALS: normal respiratory effort, No retractions, No use of accessory muscles and clear to auscultation bilaterally AUSCULTATION: clear to auscultation bilaterally Cardio: COMMON NORMALS: regular rate, regular rhythm and No murmurs present (Cardio) RATE: regular rate RHYTHM: regular rhythm GI: COMMON NORMALS: Soft to palpation and No hepatosplenomegaly present AUSCULTATION: Yes normoactive bowel sounds PALPATION: Yes Soft to palpation, No Tenderness to palpation present (GI), No Guarding due to palpation present (GI) and Yes No hepatosplenomegaly present Extremity: COMMON NORMALS: normal to inspection, capillary refill normal, no clubbing, cyanosis or edema, no calf tenderness and no pedal edema Neuro: SENSORIUM/ORIENTATION: Yes oriented to person, Yes oriented to place and Yes oriented to time Skin: COMMON NORMALS: no rashes or lesions noted GENERAL SKIN EXAM: no rashes or lesions noted Course Vital Signs: Vital signs: Vital Signs Temperature 97.5 F L 05/05/23 10:21 Pulse Rate 76 05/05/23 10:21 Respiratory Rate 18 05/05/23 10:21 Blood Pressure 188/66 05/05/23 10:21 Pulse Oximetry 99 05/05/23 10:21 Oxygen Delivery Me thod Room Air 05/05/23 10:21 MDM - Allergic Reaction Medical Decision Making Discussed with Dr. Ryan. We will decrease her amiodarone to 100 twice daily. He is concerned stopping suddenly may have precipitated episode of RVR. Will increase her diltiazem to 180 XR daily and then have her follow-up with her primary care doctor or the mailing machine helper within the next week. They can potentially continue to titrate her off of the amiodarone. Medical Records I reviewed the patient's medical records. Lab Data I reviewed the patient's lab results. No radiology studies performed this visit Discharge Plan Discharge Patient Disposition: Home Clinical Impression: Atrial fibrillation, Medication side effect Condition: Stable Prescriptions: New DILT-XR 180 mg capsule,ext.rel 24h degradable 180 mg PO DAILY Qty: 30 0RF Changed Pacerone 200 mg tablet 100 mg PO BID Qty: 30 0RF Discontinued diltiazem HCl 60 mg capsule,extended release 12 hr 60 mg PO BID Qty: 180 0RF No Action rosuvastatin [Crestor] 5 mg tablet 5 mg PO BEDTIME Eliquis 5 mg Tablet 5 mg PO BID@0900,2100 Qty: 180 0RF Zyrtec 10 mg Tablet 10 mg PO BEDTIME Flonase 50 mcg/actuation [place],Suspension 1 spray INTRANASAL BEDTIME Vitamin D3 50 mcg (2,000 unit) Capsule 2,000 unit PO BEDTIME krill oil 500 mg Capsule 500 mg PO BEDTIME losartan 50 mg tablet 50 mg PO BEDTIME Discharge Orders: Discharge ED (Routine); Ordered 05/05/23 Ordered By: Damon Cortez Referrals: Carol Alberts PA [Primary Care Provider] - Discharge Diet: Usual diet Discharge Activity: Increase activity as tolerated Patient Instructions: Opioid Safety, Pain Management Activity Restrictions/Additional Instructions: Thank you for choosing [facility] for your healthcare needs today. Please realize this is an emergency room and that we are providing you with a medical screening exam and this may not be complete and all inclusive of all the testing and or work up that you may need to determine your ailment or severity of your illness. It is very important that you follow up as instructed or that you return to the Emergency Department should you have concerns or if your condition changes or worsens in any way. You were seen today for potential side effect of medication. Discussed with cardiology we recommend decreasing the amiodarone to half a tablet twice a day for now and following up with cardiology. They may be able to stop the medication. If you continue to have trouble with the lower dose or if you remain in normal sinus rhythm. Additionally recommend you change from diltiazem 60 mg twice a day to 180 mg extended release once daily. Follow-up with cardiology as scheduled. Return to the ER if you have further problems Coding Level of Care Code ED Cold Header Operator for Brianna Gordon
--- NOTE | 2023-05-05 10:58 | ECG_ITS ---
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 Measurements Intervals [place] Rate: 68 P: 33 [place]: 188 QRS: 22 QRSD: 168 T: 32 QT: 424 QTc: 452 Interpretive Statements SINUS RHYTHM RIGHT BUNDLE BRANCH BLOCK [120+ ms QRS DURATION, UPRIGHT V1, 40+ ms S IN I/aVL/V4/V5/V6] Compared to ECG 04/23/2023 22:37:47 No significant changes Electronically Signed On 05-05-2023 11:14:26 FIRE PREVENTION ENGINEER by Ori Norwood M.D. [email or web address] at stone countyMemBlazepremier health [facility]rium [facility].VoltServer/store/OM/[id number]
== END 2023-05-05 11:21 | disposition home or self-care (01) ==
PROVIDERS: Emergency Provider Family Medicine; PCP Physician Assistant
DX: I48.91 Unspecified atrial fibrillation (principal); T46.2X5A Adverse effect of other antidysrhythmic drugs, initial encounter; Z79.01 Long term (current) use of anticoagulants
CPT/HCPCS: 93005; 99283

== ENCOUNTER 2023-05-23 08:35 | Outpatient (CLI) | payer MEDICAID, SELFPAY ==
[2023-05-23 09:13] VITALS: BMI 38.6
--- NOTE | 2023-05-23 09:15 | ECG_ITS ---
[facility] Test Date: 2023-05-23 Pat Name: Judith Emmanuel Department: Room: Gender: Female Regrader: Abiel Contreras : 1960 Requested By: Conner Mei Order Number: [id number] Ashely MD: Ori Norwood M.D. Interpretive Statements NAME OF STUDY: LEXISCAN SESTAMIBI STRESS TEST INDICATION: [a fib, abnormal troponin] Procedure: At the baseline, the blood pressure was 157/88 mmHg with a heart rate of 68 bpm. The electrocardiogram showed normal sinus rhythm, normal axis with normal ST and T's. Right bundle branch block The Lexiscan was infused over a period of 20 seconds. A total of 0.4 mg of Lexiscan was infused. The stress phase was continued for a total of 5 minutes. Heart rate was at the end of stress phase was 92 bpm and a blood pressure of 163/71 mmHg. The EKG at the peak infusion revealed normal sinus rhythm with no significant ST-T wave changes. Sestamibi was injected 20 seconds after the Lexiscan infusion. Blood pressure at the end of recovery phase was 160/75 mmHg with a heart rate of 82 bpm. Conclusion: 1. Normal EKG response to Lexiscan infusion 2. No Lexiscan induced chest pain or cardiac arrhythmia. 3. Normal blood pressure and heart rate response. 4. Sestamibi/sestamibi perfusion scan pending; see separate report. Electronically Signed On 06-08-2023 11:47:18 SALES SERVICE COORDINATOR by Ori Norwood M.D. [id number]
--- NOTE | 2023-05-23 09:16 | NMCV_ITS ---
NM elena perf SPECT r/s* [id number] Judith Emmanuel Age: 62 Gender: F : 1960 Exam Date: 05/23/2023 09:46 Ordering Phys: Conner Mei MD Technologist: ANTHONY Castorena Exam Location: [facility] Indications: A FIB STRESS TEST Please [facility] for [facility] IMAGE PROTOCOL Rest/Stress 1 Lexiscan Day Radiopharmaceutical Dose (mCi) Administration Site Administered by Rest: Tc-99m 10.6 IV ANTHONY Kitchen Sestamibi Stress:Tc-99m 33.0 IV ANTHONY Castorena Sestamiguanaco Rest: 23-May-2023 60 Discovery 630 Stress: 23-May-2023 30 Discovery 630 0.4mg Lexiscan. Images obtained in supine and prone position. SPECT RESULTS Technical Quality: Excellent Raw Data Analysis: Normal Image Corrections: No attenuation or motion correction applied Summed Stress Score: 9 Summed Rest Score: 11 Summed Difference Score: 2 PERFUSION FINDINGS There is mostly fixed large sized, fixed perfusion defect noted in the inferolateral wall. 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 There is a medium sized area of fixed perfusion defect noted in inferior wall. This is consistent with medium sized area of prior infarct in RCA territory. FUNCTIONAL RESULTS (calculated via Gated SPECT) Stress Image LV EF (%): 85 Stress EDV (mL):82 TID: 0.92 Stress ESV (mL):12 FUNCTIONAL FINDINGS: There is normal left ventricular systolic function. IMPRESSIONS 1. Large area of prior infarct with minimal alexander-infarct ischemia seen in left circumflex artery territory. 2. Medium sized area of prior infarct seen in RCA territory. No significant ischemia. 3. LV systolic function is normal. Ori Norwood MD (Electronically Signed) Final Date: 23 May 2023 12:16 S
[2023-05-23] MEDS: regadenoson 0.4 Mg/5 ml Syringe IVP (10:32)
[2023-05-23 10:52] VITALS: BP 160/75; PULSE 84
== END 2023-05-23 08:36 | disposition home or self-care (01) ==
LOC: CDL 08:36
PROVIDERS: PCP Physician Assistant; Visit Provider Internal Medicine
DX: I48.91 Unspecified atrial fibrillation (principal); R79.89 Other specified abnormal findings of blood chemistry; I25.2 Old myocardial infarction
CPT/HCPCS: 36415; 78452; 93017; 96374; A9500; J2785

== ENCOUNTER 2023-05-27 16:45 | Emergency (ER) | payer MEDICAID, SELFPAY ==
[2023-05-27 16:56] VITALS: BP 161/84; PULSE 78; RESP 12; TEMP 36.8; O2SAT 97; BMI 37.9
--- NOTE | 2023-05-27 17:50 | ECG_ITS ---
[facility] Test Date: 2023-05-27 Pat Name: Judith Emmanuel Department: Room: Gender: Female Lozenge Maker: : 1960 Requested By: Damon Cr Order Number: [id number] Ashely MD: Nayely Ryan M.D. Measurements Intervals [place] Rate: 64 P: 33 IA: 190 QRS: 21 QRSD: 158 T: 34 QT: 445 QTc: 461 Interpretive Statements SINUS RHYTHM RIGHT BUNDLE BRANCH BLOCK [120+ ms QRS DURATION, UPRIGHT V1, 40+ ms S IN I/aVL/V4/V5/V6] Compared to ECG 05/05/2023 10:58:28 No significant changes Electronically Signed On 05-27-2023 19:56:03 SURGEON/PRESIDENT by Nayely Ryan M.D. [email or web address] [email or web address] Companyyalobusha general hospitalSalesPredictthe [facility]health [facility].[employer]/store/OM/[id number]
[2023-05-27 17:54] LABS: Basophils % 0.4 %; Eosinophils % 0.4 %; Hematocrit 44.1 % (36-47); Lymphocytes # 1.4 10^3/uL (0.8-4.8); Lymphocytes % 20.1 %; Mean Corpuscular HGB Conc 32.7 g/dL (30-55); Mean Corpuscular Hemoglobin 29.7 pg (27-33); Mean Corpuscular Volume 90.9 fl (85-98); Mean Platelet Volume 9.6 fL (7.4-10.4); Monocytes # 0.6 10^3/uL (0.2-0.9); Monocytes % 8.6 %; Neutrophils # 4.82 10^3/uL (1.8-7.7); Neutrophils % 70.2 %; Nucleated Red Blood Cells % 0 %; Platelet Count 265 10^3/cmm (157-399); Red Blood Count 4.85 10^6/uL (3.85-5.65); Red Cell Distribution Width 12.5 % (12.1-15.1); White Blood Count 6.87 10^3/uL (3.29-11.43)
[2023-05-27 17:59] VITALS: PULSE 70; RESP 20; O2SAT 98
[2023-05-27 18:04] LABS: Troponin(5th) Baseline 7 ng/L (0-10)
[2023-05-27 18:05] VITALS: O2SAT 98
[2023-05-27 18:16] LABS: Alanine Aminotransferase 29 U/L (0-33); Albumin Level 4.4 g/dL (3.5-5.2); Alkaline Phosphatase 95 U/L (35-105); Anion Gap 15.6 (5-19); Aspartate Amino Transferase 19 U/L (0-32); Blood Urea Nitrogen 17 mg/dL (8-23); Calcium 9.6 mg/dL (8.5-10.5); Carbon Dioxide 24 mmol/L (22-29); Chloride 105 mmol/L (98-107); Globulin 2.8 g/dL (1.3-4.6); Glomerular Filtration Rate 73.2 mL/min (90-130); Glucose 103 mg/dL (65-115); Osmolality Calculated 292 mOsm/kg (285-295); Potassium 4.6 mmol/L (3.5-5.1); Sodium 140 mmol/L (136-145); Total Bilirubin 0.4 mg/dL (0.15-1.2); Total Protein 7.2 g/dL (6.6-8.7)
--- NOTE | 2023-05-27 18:34 | ED_ITS ---
HPI - Arrhythmia/Palpitations 2 General: Chief Complaint: Arrhythmia/Palpitations Stated Complaint: chest pain, nausea, light headed Time Seen by Provider: 05/27/23 17:13 History of Present Illness: Patient presents to the ER today with complaints of chest pressure since last night. Patient does have a history of atrial fibrillation and feels this way when she goes into fibrillation. Patient is on amiodarone and she has been decreasing dose per pacs administrator. Patient is also on Eliquis. Patient denies any chest pain at this time she just feels minimally short of breath and just kind of not good all over. Patient states since last night she gets short of breath and exhausted doing things that she normally should get short of breath and exhausted doing. Review of Systems 2 General: Reports: 10 or more systems reviewed and unremarkable except in HPI and below PFSH ED 2 PFSH: Medical History No pertinent past medical history Surgical History No pertinent past surgical history Family History Other CAD (coronary artery disease) Cardiomyopathy Social History Smoking and tobacco/nicotine status: never used tobacco/nicotine Alcohol intake: never Physical Exam 2 Const: COMMON NORMALS: no acute distress, average body habitus, patient oriented x3, no limitations, healthy appearing, alert and well nourished HENMT: COMMON NORMALS: normocephalic, atraumatic, hearing grossly normal bilaterally, external ears normal, Normal external nose present, moist oral mucous membranes and oropharynx normal HEAD & SCALP: normocephalic and atraumatic NOSE: Normal external nose present EXTERNAL EAR: Yes external ears normal Neck/C-Spine: COMMON NORMALS: no JVD Chest: COMMONS NORMALS: normal inspection of the chest and normal palpation of entire chest wall Resp: COMMON NORMALS: normal respiratory effort, No retractions, No use of accessory muscles and clear to auscultation bilaterally AUSCULTATION: clear to auscultation bilaterally Cardio: COMMON NORMALS: no JVD, regular rate, regular rhythm, S1 normal heart sound present, S2 normal heart sound present, No gallops present (Cardio), No clicks present (Cardio), No murmurs present (Cardio) and No rub (Cardio) R ATE: regular rate RHYTHM: regular rhythm HEART SOUNDS: S1 normal heart sound present and S2 normal heart sound present GI: COMMON NORMALS: Normal to inspection, nondistended, normoactive bowel sounds present, Soft to palpation, non-tender, No hepatosplenomegaly present and no masses PALPATION: Yes Soft to palpation and Yes No hepatosplenomegaly present Neuro: COMMON NORMALS: patient oriented x3 SENSORIUM/ORIENTATION: Yes alert Course 2 Vital Signs: Vital signs: Vital Signs Temperature 98.3 F 05/27/23 16:56 Pulse Rate 65 05/27/23 19:09 Respiratory Rate 17 05/27/23 19:09 Blood Pressure 142/71 05/27/23 19:09 Pulse Oximetry 96 05/27/23 19:09 Oxygen Delivery Me thod Room Air 05/27/23 19:09 MDM - Arrhythmia/Palpitations Medical Decision Making Patient presents to the ER with chest pressure. Patient does have a history of atrial fibrillation paroxysmal. Patient was worked up in a standard chest pain fashion with serial EKGs, serial enzymes, all of which was essentially benign. Is felt the patient's chest pressure is coinciding with her paroxysmal atrial fibrillation. Patient is currently on Eliquis. And amiodarone. Patient should follow-up with her PCP or pacs administrator within the next 7 to 10 days for further evaluation and treatment. Differential Diagnosis Likely palpitations and artial fibrillation Medical Records I reviewed the patient's medical records. Lab Data I reviewed the patient's lab results. 05/27/23 17:34 05/27/23 17:34 Laboratory Results WBC 6.87 10^3/uL (3.29-11.43) 05/27/23 17:34 RBC 4.85 10^6/uL (3.85-5.65) 05/27/23 17:34 Hgb 14.40 g/dL (11.27-16.99) 05/27/23 17:34 Hct 44.1 % (36-47) 05/27/23 17:34 MCV 90.9 fl (85-98) 05/27/23 17:34 MCH 29.7 pg (27-33) 05/27/23 17:34 MCHC 32.7 g/dL (30-55) 05/27/23 17:34 RDW 12.5 % (12.1-15.1) 05/27/23 17:34 Plt Count 265 10^3/cmm (157-399) 05/27/23 17:34 MPV 9.6 fL (7.4-10.4) 05/27/23 17:34 Neut % (Auto) 70.2 % 05/27/23 17:34 Lymph % (Auto) 20.1 % 05/27/23 17:34 [place] % (Auto) 8.6 % 05/27/23 17:34 Eos % (Auto) 0.4 % 05/27/23 17:34 Baso % (Auto) 0.4 % 05/27/23 17:34 Neut # (Auto) 4.82 10^3/uL (1.8-7.7) 05/27/23 17:34 Lymph # (Auto) 1.4 10^3/uL (0.8-4.8) 05/27/23 17:34 [place] # (Auto) 0.6 10^3/uL (0.2-0.9) 05/27/23 17:34 Eos # (Auto) 0.0 10^3/uL (0.0-0.8) 05/27/23 17:34 Baso # (Auto) 0.0 10^3/uL (0.0-0.1) 05/27/23 17:34 Nucleated RBC % (auto) 0 % 05/27/23 17:34 Nucleated RBCs # 0.0 /100WBC 05/27/23 17:34 Sodium 140 mmol/L (136-145) 05/27/23 17:34 Potassium 4.6 mmol/L (3.5-5.1) 05/27/23 17:34 Chloride 105 mmol/L (98-107) 05/27/23 17:34 Carbon Dioxide 24 mmol/L (22-29) 05/27/23 17:34 Anion Gap 15.6 (5-19) 05/27/23 17:34 BUN 17 mg/dL (8-23) 05/27/23 17:34 Creatinine 0.8 mg/dL (0.5-0.9) 05/27/23 17:34 GFR Calculation 73.2 mL/min (90-130) L 05/27/23 17:34 Glucose 103 mg/dL (65-115) 05/27/23 17:34 Calculated Osmolality 292 mOsm/kg (285-295) 05/27/23 17:34 Calcium 9.6 mg/dL (8.5-10.5) 05/27/23 17:34 Total Bilirubin 0.4 mg/dL (0.15-1.2) 05/27/23 17:34 AST 19 U/L (0-32) 05/27/23 17:34 ALT 29 U/L (0-33) 05/27/23 17:34 Alkaline Phosphatase 95 U/L (35-105) 05/27/23 17:34 Troponin T Baseline 7 ng/L (0-10) 05/27/23 17:34 Troponin T 120 Minute 8.88 ng/L (0-10) 05/27/23 19:25 Delta Troponin T 1.88 ABS# (0-10) 05/27/23 19:25 Total Protein 7.2 g/dL (6.6-8.7) 05/27/23 17:34 Albumin 4.4 g/dL (3.5-5.2) 05/27/23 17:34 Globulin 2.8 g/dL (1.3-4.6) 05/27/23 17:34 All radiology interpretation(s) finalized by discharge EKG Data EKG 1: I personally reviewed and interpreted this EKG as follows: EKG interpretation date: 05/27/23 EKG interpretation time: 17:50 Prior EKG tracings: not available for review Interpretation: EKG showed ventricular rate 64 beats minute, TN interval 190, QRS duration 158, QTc of 455, sinus rhythm, right bundle branch block, Discharge Plan Discharge Patient Disposition: Home Clinical Impression: Atrial fibrillation Condition: Stable Prescriptions: No Action Eliquis 5 mg tablet 5 mg PO BID@0900,2100 Qty: 180 3RF Pacerone 200 mg tablet 100 mg PO DAILY Qty: 90 3RF DILT-XR 180 mg capsule,ext.rel 24h degradable 180 mg PO DAILY Qty: 90 3RF metoprolol tartrate 50 mg tablet 50 mg PO BID PRN (Reason: palpitations) Qty: 60 3RF rosuvastatin [Crestor] 5 mg tablet 10 mg PO BEDTIME losartan 50 mg tablet 50 mg PO BEDTIME Qty: 90 3RF Zyrtec 10 mg Tablet 10 mg PO BEDTIME Flonase 50 mcg/actuation [place],Suspension 1 spray INTRANASAL BEDTIME Vitamin D3 50 mcg (2,000 unit) Capsule 2,000 unit PO BEDTIME krill oil 500 mg Capsule 500 mg PO BEDTIME Discharge Orders: Discharge ED (Routine); Ordered 05/27/23 Ordered By: Jonathan Benson Referrals: Carol Alberts PA [Primary Care Provider] - 1 week Patient Instructions: A-fib (Atrial Fibrillation) (ED) Activity Restrictions/Additional Instructions: Your workup in the ER was essentially negative other than episodic atrial fibrillation. It is thought that this is causing your chest pressure palpitations and weakness. You are currently going down your medicine however you may need to discuss this with your pacs administrator especially if these episodes are becoming more frequent you may need to increase your medicine or change medicines. Please follow-up with your pacs administrator and/or primary care physician within the next 7 to 10 days for further evaluation and treatment. If the symptoms worsen please feel free to return to the ER for further evaluation. Coding Level of Care Code ED Copy And Print Associate for Brianna Gordon
[2023-05-27 19:09] VITALS: BP 142/71; PULSE 65; RESP 17; O2SAT 96
--- NOTE | 2023-05-27 19:13 | ECG_ITS ---
[facility] Test Date: 2023-05-27 Pat Name: Judith Emmanuel Department: Room: Gender: Female Production Recorder: : 1960 Requested By: Damon Cr Order Number: [id number] Ashely MD: Nayely Ryan M.D. Measurements Intervals [place] Rate: 67 P: 38 [place]: 196 QRS: 17 QRSD: 155 T: 33 QT: 440 QTc: 466 Interpretive Statements SINUS RHYTHM RIGHT BUNDLE BRANCH BLOCK [120+ ms QRS DURATION, UPRIGHT V1, 40+ ms S IN I/aVL/V4/V5/V6] Compared to ECG 05/27/2023 17:50:25 No significant changes Electronically Signed On 05-27-2023 20:18:58 LAB INTERN by Nayely Ryan M.D. [email or web address]/store/[id number]
[2023-05-27 20:09] LABS: Troponin 5 2HR 8.88 ng/L (0-10); Troponin 5 2HR Delta 1.88 ABS# (0-10)
[2023-05-27 20:35] VITALS: BP 157/90; PULSE 66; RESP 17; O2SAT 99
== END 2023-05-27 20:37 | disposition home or self-care (01) ==
PROVIDERS: Family Medicine; Emergency Provider Emergency Medicine; PCP Physician Assistant
DX: I48.91 Unspecified atrial fibrillation (principal); Z79.01 Long term (current) use of anticoagulants
CPT/HCPCS: 36415; 80053; 84484; 85025; 93005; 99284

== ENCOUNTER 2023-06-09 14:21 | Outpatient (CLI) | payer MEDICAID, SELFPAY ==
--- NOTE | 2023-06-09 15:00 | USCV_ITS ---
Judith Emmanuel Age: 63 Gender: F : 1960 Exam Date: 06/09/2023 15:03 Ordering Phys: Farnaz Gordillo Technologist: [place] [facility] [place]: afib,ef BP: 130 / 80 HR: 59 Rhythm: Sinus Technical Quality: Adequate MEASUREMENTS (Male / Female) Normal Values 2D ECHO LV Chamber Size 4.9 cm RV Chamber Size 3.3 cm LVOT Diameter 2.0 cm LV Ejection Fraction MOD 2C 58.3 % LV Ejection Fraction 2C AL 55.9 % LA Diameter 4.2 cm LA Width 4.0 cm LA Height 4.5 cm RA Width 3.1 cm RA Height 4.8 cm Aorta at Sinotubular Diameter 2.5 cm M-MODE Aortic Annulus Diameter 3.1 cm LA Ao Ratio MM 1.5 MV E Point Septal Separation 0.9 cm FINDINGS Left Ventricle Right Ventricle Right Atrium Left Atrium Mitral Valve Aortic Valve Tricuspid Valve Pulmonic Valve Pericardium Aorta IVC CONCLUSIONS Limited echocardiogram performed to assess LV systolic function. LV systolic function is normal with EF of 55 to 60%. No regional wall motion abnormalities are seen. Compared to prior echocardiogram from 2022, no significant changes are seen in LV systolic function Ori Norwood MD (Electronically Signed) Final Date: 15 June 2023 20:31 S
== END 2023-06-09 14:22 | disposition home or self-care (01) ==
LOC: RAD 14:22
PROVIDERS: PCP Physician Assistant; Visit Provider Nurse Practitioner Family
DX: I48.91 Unspecified atrial fibrillation (principal)
CPT/HCPCS: 93308

== ENCOUNTER 2023-07-15 20:00 | Outpatient (CLI) | payer MEDICAID, SELFPAY | END 2023-07-15 20:01 | disposition home or self-care (01) | LOC: SLEEP 07-16 06:24 | PROVIDERS: PCP Physician Assistant; Visit Provider Internal Medicine | DX: G47.33 Obstructive sleep apnea (adult) (pediatric) (principal) | CPT/HCPCS: 95810 ==

== ENCOUNTER 2023-08-14 09:34 | Outpatient (CLI) | payer MEDICAID, SELFPAY ==
--- NOTE | 2023-08-14 09:35 | MM_ITS ---
WS: [id number] BILATERAL SCREENING DIGITAL TOMOSYNTHESIS MAMMOGRAM WITH CAD HISTORY: SCREENING COMPARISON: 07/22/2022, 07/05/2021 and 06/18/2018 Bilateral CC and MLO views with tomosynthesis and synthetic mammography submitted. Computer aided det ection analyzed. Breast composition: There are scattered areas of fibroglandular density. No suspicious masses, microc alcifications or architectural distortion. Benign calcification central RIGHT breast. IMPRESSION: MM/[place] [id number] BI-RADS: 2-Benign FOLLOW UP: 1 Year Follow-up
== END 2023-08-14 09:35 | disposition home or self-care (01) ==
LOC: RAD 09:34
PROVIDERS: PCP Physician Assistant; Visit Provider Physician Assistant
DX: Z12.31 Encounter for screening mammogram for malignant neoplasm of breast (principal)
CPT/HCPCS: 77063; 77067

== ENCOUNTER → 2024-01-27 16:00 | Outpatient (BNVA) | payer MEDICAID, SELFPAY | PROVIDERS: PCP Physician Assistant; Visit Provider Internal Medicine | DX: I48.91 Unspecified atrial fibrillation (principal) | CPT/HCPCS: 36415; 80048 ==

== ENCOUNTER 2024-01-29 10:11 | Emergency (ER) | payer MEDICAID, SELFPAY ==
[2024-01-29 10:12] VITALS: BP 169/94; PULSE 68; RESP 17; TEMP 36.6; O2SAT 100; BMI 34.7
--- NOTE | 2024-01-29 10:19 | CT_ITS ---
WS: [id number] CT HEAD TECHNIQUE: Noncontrast CT of the head obtained from the skullbase to the vertex. CLINICAL INFORMATION: fall COMPARISON: None. DLP: 1038.[address] scans at [facility] use at least one of these dose optimization techniques: automated e xposure control; mA and/or kV adjustment per patient size (includes targeted exams where dose is matc hed to clinical indication); or iterative reconstruction. FINDINGS: No evidence of intracranial hemorrhage or mass effect. Ventricular system and basal cisterns are sigala nt. Mild small vessel changes with mild parenchymal volume loss. No extra-axial fluid collections. No evidence of mass or mass effect. Paranasal sinuses and mastoid air cells are well aerated. .Normal visualized soft tissues. CT/CT head wo con* [id number] IMPRESSION: 1. No evidence of intracranial hemorrhage or mass effect. 2. No acute intracranial findings.
--- NOTE | 2024-01-29 10:30 | W.ED.HEATRA ---
HPI - Head Injury General: Chief complaint: Head Injury Stated complaint: fell in shower and hit head Time Seen by Provider: 01/29/24 10:13 Source: patient Mode of arrival: ambulatory Limitations: no limitations History of Present Illness: 63-year-old female states she had slipped in the shower getting out this morning states she did hit her head on her bathtub. She denies any loss conscious she does have a mild headache she states she is on Eliquis though in 1 to make sure things okay. She denies any other injuries denies any neck pain. She has been ambulatory since the event without any difficulties Associated symptoms: Deny nausea, neck pain or vomiting Related Data Home Medications Medication Instructions Recorded Confirmed cetirizine 10 mg tablet (Zyrtec) 10 mg PO BEDTIME 05/05/23 01/27/24 cholecalciferol (vitamin D3) 50 2,000 unit PO BEDTIME 05/05/23 01/27/24 mcg (2,000 unit) capsule (Vitamin D3) fluticasone propionate 50 1 spray intranasal BEDTIME 05/05/23 01/27/24 mcg/actuation nasal spray,suspension krill oil 500 mg capsule 500 mg PO BEDTIME 05/05/23 01/27/24 rosuvastatin 5 mg tablet (Crestor) 10 mg PO BEDTIME 05/20/23 01/27/24 tirzepatide 2.5 mg/0.5 mL mg SUBCUT 01/27/24 01/27/24 subcutaneous pen injector Previous Rx's Medication Instructions Recorded metoprolol tartrate 50 mg tablet 50 mg PO BID PRN palpitations #60 05/20/23 tabs apixaban 5 mg tablet (Eliquis) 5 mg PO BID@0900,2100 #180 tabs 07/22/23 diltiazem HCl 180 mg 180 mg PO DAILY #90 caps 07/22/23 capsule,extended release 24 hr, controlled (DILT-XR) Allergies Allergy/AdvReac Type Severity Reaction Status Date / Time Penicillins Allergy Unknown Verified 01/27/24 15:00 Review of Systems Const: Denies: fever(s), chills, body aches or change in appetite Eyes: Denies: blurry vision or eye discomfort ENMT: Denies: throat pain or dental pain Card: Denies: chest pain Resp: Denies: dyspnea GI: Denies: abdominal pain, nausea, vomiting or diarrhea Musc: Denies: neck pain or back pain Skin/Breast: Denies: rash Neuro: Denies: headache(s) PFSH ED PFSH: Medical History No pertinent past medical history Surgical History No pertinent past surgical history Family History Other CAD (coronary artery disease) Cardiomyopathy Social History Smoking and tobacco/nicotine status: never used tobacco/nicotine Alcohol intake: never Physical Exam Const: COMMON NORMALS: no acute distress, patient oriented x3 and healthy appearing HENMT: COMMON NORMALS: normocephalic and atraumatic HEAD & SCALP: normocephalic and atraumatic Neck/C-Spine: COMMON NORMALS: full ROM and supple Chest: COMMONS NORMALS: normal inspection of the chest Resp: COMMON NORMALS: normal respiratory effort Cardio: COMMON NORMALS: regular rate, regular rhythm and No murmurs present (Cardio) RATE: regular rate RHYTHM: regular rhythm Extremity: COMMON NORMALS: normal to inspection and full ROM Neuro: COMMON NORMALS: patient oriented x3, moves all extremities and no focal motor deficits Psych: COMMON NORMALS: mental status grossly normal, Normal thought process present and cooperative THOUGHT PROCESS: Normal thought process present Skin: COMMON NORMALS: no rashes or lesions noted and no wounds GENERAL SKIN EXAM: no rashes or lesions noted Course Vital Signs: Vital signs: Vital Signs Temperature 97.9 F 01/29/24 10:12 Pulse Rate 61 01/29/24 12:03 Respiratory Rate 16 01/29/24 12:03 Blood Pressure 125/70 01/29/24 12:03 Pulse Oximetry 98 01/29/24 12:03 Oxygen Delivery Me thod Room Air 01/29/24 10:12 MDM - Head Injury Medcial Decision Making Patient presents with a closed head injury head CT here is negative patient stable for discharge follow-up PCP return if worsening. Medical Records I reviewed the patient's medical records. Lab Data Radiology Impressions Head CT 01/29/24 10:19 IMPRESSION: 1. No evidence of intracranial hemorrhage or mass effect. 2. No acute intracranial findings. All radiology interpretation(s) finalized by discharge Discharge Plan Discharge Patient Disposition: Home Clinical Impression: Closed head injury Condition: Stable Prescriptions: No Action metoprolol tartrate 50 mg tablet 50 mg PO BID PRN (Reason: palpitations) Qty: 60 3RF tirzepatide 2.5 mg/0.5 mL pen injector SUBCUT rosuvastatin [Crestor] 5 mg tablet 10 mg PO BEDTIME Eliquis 5 mg tablet 5 mg PO BID@0900,2100 Qty: 180 3RF DILT-XR 180 mg capsule,ext.rel 24h degradable 180 mg PO DAILY Qty: 90 3RF Zyrtec 10 mg Tablet 10 mg PO BEDTIME Flonase 50 mcg/actuation [place],Suspension 1 spray INTRANASAL BEDTIME Vitamin D3 50 mcg (2,000 unit) Capsule 2,000 unit PO BEDTIME krill oil 500 mg Capsule 500 mg PO BEDTIME Discharge Orders: Discharge ED (Routine); Ordered 01/29/24 Ordered By: Jeremiah Avila Referrals: Carol Alberts PA [Primary Care Provider] - Discharge Diet: Advance as tolerated Discharge Activity: Resume usual activity Patient Instructions: Head Injury (ED) Coding Level of Care Code ED Body Press Operator for Brianna Gordon
[2024-01-29 12:03] VITALS: BP 125/70; PULSE 61; RESP 16; O2SAT 98
== END 2024-01-29 12:04 | disposition home or self-care (01) ==
PROVIDERS: Emergency Provider Emergency Medicine; PCP Physician Assistant
DX: S09.8XXA Other specified injuries of head, initial encounter (principal); Z79.01 Long term (current) use of anticoagulants; Z79.85 Long-term (current) use of injectable non-insulin antidiabetic drugs; W18.2XXA Fall in (into) shower or empty bathtub, initial encounter
CPT/HCPCS: 70450; 99284

== ENCOUNTER 2024-08-20 08:15 | Outpatient (CLI) | payer MEDICAID, SELFPAY ==
--- NOTE | 2024-08-20 08:18 | MM_ITS ---
WS: [id number] SCREENING DIGITAL BREAST TOMOSYNTHESIS MAMMOGRAM WITH CAD HISTORY: SCREENING COMPARISON: 08/14/2023, 07/22/2022, 06/18/2018 Bilateral CC and MLO with tomosynthesis and synthetic mammography submitted. Computer aided detection analyzed. Breast composition: The breasts are heterogeneously dense, which may obscure small masses. New nodular asymmetry measuring 6 mm seen only on the LEFT MLO projection above the nipple. Just lateral to the nipple line. No definite corresponding abnormality seen on the CC projection. Benign calcifications RIGHT breast. MM/MM [facility] tomosynthesis [id number] IMPRESSION: BI-RADS: 0 - Incomplete: Need additional imaging evaluation FOLLOW UP: Need Additional Imaging LEFT breast: Spot compression views (CC and MLO). True ML. Ultrasound to follow if abnormality persists. CC spot compression recommended over the lateral LEFT breast at middle depth.
== END 2024-08-20 08:16 | disposition home or self-care (01) ==
PROVIDERS: PCP Physician Assistant; Visit Provider Physician Assistant
DX: Z12.31 Encounter for screening mammogram for malignant neoplasm of breast (principal); R92.333 Mammographic heterogeneous density, bilateral breasts; N64.89 Other specified disorders of breast; R92.1 Mammographic calcification found on diagnostic imaging of breast
CPT/HCPCS: 77063; 77067

== ENCOUNTER 2024-09-06 09:18 | Outpatient (CLI) | payer MEDICAID, SELFPAY ==
--- NOTE | 2024-09-06 09:22 | MM_ITS ---
WS: [id number] ADDITIONAL VIEWS LEFT MAMMOGRAM WITH DIGITAL BREAST TOMOSYNTHESIS. LEFT breast ultrasound, limited HISTORY: ABNORMAL MAMMO COMPARISON: 08/14/2023 Spot compression views LEFT breast in CC, MLO projections and true ML submitted with digital breast tomosynthesis and . Breast composition: The breasts are heterogeneously dense, which may obscure small masses. Dense fibroglandular tissue in the upper outer quadrant of the LEFT breast is more prominent than on prior mammograms. Previously described mass above the nipple does not persist on additional imaging. There is no mass identified or distortion. No calcification. Ultrasound to follow. LEFT breast ultrasound, limited. Ultrasound directed to the upper outer quadrant of the LEFT breast. Dense fibroglandular tissue in the upper outer quadrant of the LEFT breast. There is no mass or shadowing. No distortion. MM/MM diag LT tomosynthesis [id number] IMPRESSION: BI-RADS: 2 - Benign FOLLOW UP: 1 Year Follow-up No persistent abnormality upper outer quadrant of LEFT breast in the area of de nse fibroglandular tissue.
== END 2024-09-06 09:19 | disposition home or self-care (01) ==
PROVIDERS: PCP Physician Assistant; Visit Provider Physician Assistant
DX: R92.8 Other abnormal and inconclusive findings on diagnostic imaging of breast (principal); R92.333 Mammographic heterogeneous density, bilateral breasts; R92.322 Mammographic fibroglandular density, left breast
CPT/HCPCS: 76642; 77061; G0279